=== PATIENT | male | born 1960 | race Caucasian/White ===

== ENCOUNTER 2020-06-19 17:24 | Emergency (ER) | payer MEDICAID ==
[~2020-06-19] VITALS: Ht 180.3 cm; Wt 84.0 kg
[2020-06-19] MEDS ORDERED: METHYLPREDNISOLONE SOD SUCC 125 MG/2 ML VIAL IV STA (18:34)
[2020-06-19] MEDS ORDERED: IPRATROPIUM BROMIDE (0.02%) 0.5MG/2.5ML NEB HHN STA (18:34)
[2020-06-19 18:42] LABS: BASOPHILS % 0.6 % (0.0-2.0); EOSINOPHILS % 2.8 % (0.0-5.0); HEMATOCRIT. 46.3 % (42.0-52.0); HEMOGLOBIN. 15.3 g/dL (14.0-18.0); LYMPHOCYTES % 8.4 % (20.0-50.0); MEAN CORPUSCULAR HEMOGLOBIN 33.8 pg (28.0-32.0); MEAN CORPUSCULAR VOLUME 102.2 fL (80.0-94.0); MEAN PLATELET VOLUME 8.8 fl (7.4-10.4); MONOCYTES % 2.9 % (2.0-8.0); NEUTROPHILS % 85.3 % (40.0-76.0); PLATELET 179 x1000/uL (130-400); RED BLOOD CELL COUNT 4.54 mill/uL (4.7-6.1); RED CELL DISTRIBUTION WIDTH 15.3 % (11.6-14.6)
[2020-06-19] MEDS ORDERED: ASPIRIN 81MG TABLET PO ONE (18:45)
[2020-06-19 18:46] LABS: CHLORIDE 101 mEq/L (98-107)
[2020-06-19] MEDS: ALBUTEROL (0.083%) 2.5MG/3ML NEB HHN SCH ×3 (19:36→20:57)
[2020-06-19] MEDS ORDERED: SODIUM CHLORIDE 0.9% 1,000 ML IV ONE (20:00)
[2020-06-19] MEDS ORDERED: PRED10TA MT (21:27)
[2020-06-19] MEDS ORDERED: ALBU6.7H9 INH (21:43)
[2020-06-19] MEDS ORDERED: ALBUL MT (21:43)
[2020-06-19 22:14] VITALS: BP 124/71
== END 2020-06-19 22:43 | disposition home or self-care (01) ==
LOC: ER 17:24
DX: J45.901 Unspecified asthma with (acute) exacerbation (principal); F17.200 Nicotine dependence, unspecified, uncomplicated; F12.10 Cannabis abuse, uncomplicated; I10 Essential (primary) hypertension
CPT/HCPCS: 36415; 71045; 80053; 83880; 84484; 85025; 85379; 93005; 94640; 96361; 96374; 99285; J2930; Z7610

== ENCOUNTER 2021-03-05 01:08 | Inpatient (IN) | payer MEDICAID, OTHER ==
[2021-03-05] VITALS (10 sets, daily range): BP systolic 118–174; BP diastolic 78–116
[~2021-03-05] VITALS: Ht 185.4 cm; Wt 65.3 kg
[~2021-03-05 01:08] MED LIST: ALBU18HF2 IH; ALBU6.7H9 INH; ALBUL MT; ALFU10TA9 PO; BICT1TAB PO; FINA5TAB11 PO; FLUT1BLS9 IH; FLUT1DIS3 INH; P20 MT; PRED10TA MT; SULF-13 PO; UMEC62.5 IH
[2021-03-05] MEDS ORDERED: METHYLPREDNISOLONE SOD SUCC 125 MG/2 ML VIAL IV STA (01:18)
[2021-03-05] MEDS ORDERED: MAGNESIUM 2 G PREMIX 50 ML IV STA (01:18)
[2021-03-05] MEDS ORDERED: IPRATROPIUM BROMIDE (0.02%) 0.5MG/2.5ML NEB HHN STA (01:18)
[2021-03-05] MEDS ORDERED: ALBUTEROL (0.083%) 2.5MG/3ML NEB HHN STA (01:18)
[2021-03-05 01:57] LABS: HEMATOCRIT 41.6 % (42.0-52.0); HEMOGLOBIN 13.9 g/dL (14.0-18.0); MEAN CORPUSCULAR HEMOGLOBIN 32.5 pg (28.0-32.0); MEAN CORPUSCULAR VOLUME 97.3 fL (80.0-94.0); PLATELET 181 x1000/uL (130-400); RED BLOOD CELL COUNT 4.28 mill/uL (4.7-6.1); RED CELL DISTRIBUTION WIDTH 14.5 % (11.6-14.6)
[2021-03-05 02:14] LABS: CHLORIDE 102 mEq/L (98-107)
[2021-03-05] MEDS ORDERED: ACETAMINOPHEN 325MG TABLET PO PRN (06:45)
[2021-03-05] MEDS ORDERED: ONDANSETRON HCL 4MG/2ML INJ IV PRN (06:45)
[2021-03-05] MEDS: IPRATROPIUM/ALBUTEROL 0.5-3(2.5)MG/3ML NEB HHN SCH ×3 (08:55→21:09)
[2021-03-05] MEDS: FINASTERIDE 5MG TABLET PO SCH (09:00)
[2021-03-05] MEDS: FLUTICASONE PROPIONATE 50MCG/SPRAY BOTTLE BOTHNSTRLS SCH ×2 (09:00→22:42)
[2021-03-05] MEDS: FAMOTIDINE 20MG TABLET PO SCH ×3 (09:00→20:28)
[2021-03-05] MEDS: ENOXAPARIN 40MG/0.4ML SYR SUBCUT SCH (09:00)
[2021-03-05 10:39] LABS: BASOPHILS % 0.1 % (0.0-2.0); HEMATOCRIT. 42.4 % (42.0-52.0); HEMOGLOBIN. 13.5 g/dL (14.0-18.0); LYMPHOCYTES % 8.8 % (20.0-50.0); MEAN CORPUSCULAR HEMOGLOBIN 31.3 pg (28.0-32.0); MEAN CORPUSCULAR VOLUME 98.1 fL (80.0-94.0); MONOCYTES % 1.8 % (2.0-8.0); NEUTROPHILS % 89.3 % (40.0-76.0); PLATELET 164 x1000/uL (130-400); RED BLOOD CELL COUNT 4.32 mill/uL (4.7-6.1); RED CELL DISTRIBUTION WIDTH 15.2 % (11.6-14.6)
[2021-03-05 12:40] LABS: *AMPHETAMINES SCREEN URINE NEGATIVE (NEGATIVE); *BARBITURATES SCREEN URINE NEGATIVE (NEGATIVE); CANNABINOID URINE SCREEN NEGATIVE (NEGATIVE); METHADONE URINE SCREEN NEGATIVE (NEGATIVE); OPIATES URINE SCREEN PRESUMTIVE POSITIVE (NEGATIVE); PHENCYCLIDINE URINE SCREEN NEGATIVE (NEGATIVE)
[2021-03-05 12:41] LABS: *BENZODIAZEPINES SCREEN URINE NEGATIVE (NEGATIVE); *COCAINE SCREEN URINE PRESUMTIVE POSITIVE (NEGATIVE)
[2021-03-05] MEDS: METHYLPREDNISOLONE SOD SUCC 125 MG/2 ML VIAL IV SCH ×2 (12:41→17:14)
[2021-03-05] MEDS: SULFAMETHOXAZOLE/TRIMETHOPRIM 800/160MG TABLET PO SCH (12:41)
[2021-03-05] MEDS: GUAIFENESIN 600MG ER TABLET PO SCH ×2 (12:41→20:25)
[2021-03-06] VITALS (12 sets, daily range): BP systolic 116–172; BP diastolic 67–99
[2021-03-06] MEDS: METHYLPREDNISOLONE SOD SUCC 125 MG/2 ML VIAL IV SCH ×5 (00:46→23:37)
[2021-03-06] MEDS: FLUTICASONE PROPIONATE 50MCG/SPRAY BOTTLE BOTHNSTRLS SCH ×2 (08:38→21:07)
[2021-03-06] MEDS: SULFAMETHOXAZOLE/TRIMETHOPRIM 800/160MG TABLET PO SCH (08:38)
[2021-03-06] MEDS: FAMOTIDINE 20MG TABLET PO SCH ×2 (08:38→21:00)
[2021-03-06] MEDS: FINASTERIDE 5MG TABLET PO SCH (08:38)
[2021-03-06] MEDS: ENOXAPARIN 40MG/0.4ML SYR SUBCUT SCH ×2 (08:39→08:48)
[2021-03-06] MEDS: GUAIFENESIN 600MG ER TABLET PO SCH ×2 (08:44→21:07)
[2021-03-06] MEDS: IPRATROPIUM/ALBUTEROL 0.5-3(2.5)MG/3ML NEB HHN SCH ×4 (09:00→22:32)
[2021-03-06 09:01] LABS: BG CARBOXYHEMOGLOBIN 0.2 % (0.5-1.5); BG DEOXYHEMOGLOBIN 13.1 % (0.0-5.0); BG HCO3 ACT 33.1 mmol/L (22.0-26.0); BG METHEMOGLOBIN 0.2 % (0.0-1.5); BG OXYGEN SATURATION 86.8 % (92.0-98.5); BG OXYHEMOGLOBIN 86.5 % (94.0-97.0); BG PCO2 64.6 mmHg (35.0-45.0); BG PH 7.327 (7.350-7.450); BG PO2 56.7 mmHg (75.0-100.0); BG SAMPLE SITE RIGHT RADIAL; BG TOTAL HEMOGLOBIN 14.2 g/dL (12.0-18.0); BG VENT MODE NASAL CANNULA
[2021-03-06] MEDS: GUAIFENESIN-DM 200MG-20MG/10ML UDC PO PRN ×3 (10:42→23:39)
[2021-03-07] VITALS (12 sets, daily range): BP systolic 117–165; BP diastolic 69–109
[2021-03-07] MEDS: IPRATROPIUM/ALBUTEROL 0.5-3(2.5)MG/3ML NEB HHN SCH ×7 (01:48→22:50)
[2021-03-07] MEDS: METHYLPREDNISOLONE SOD SUCC 125 MG/2 ML VIAL IV SCH ×3 (06:01→17:28)
[2021-03-07 09:08] LABS: ABSOLUTE LYMPHOCYTES 0.9 x10E3/uL (0.7-3.1); ABSOLUTE MONOCYTES 0.4 x10E3/uL (0.1-0.9); BASOPHILS 0 % (Not Estab.); HEMOGLOBIN 13.3 g/dL (13.0-17.7); IMMATURE GRANULOCYTES 0 % (Not Estab.); LYMPHOCYTES 9 % (Not Estab.); MEAN CORPUSCULAR HEMOGLOBIN 31.4 pg (26.6-33.0); MEAN CORPUSCULAR HGB CONC. 33.3 g/dL (31.5-35.7); MEAN CORPUSCULAR VOLUME 95 fL (79-97); MONOCYTES 3 % (Not Estab.); NEUTROPHILS 88 % (Not Estab.); PLATELETS 166 x10E3/uL (150-450); RBC 4.23 x10E6/uL (4.14-5.80); RED CELL DISTRIBUTION WIDTH 13.1 % (11.6-15.4); WBC 10.3 x10E3/uL (3.4-10.8)
[2021-03-07] MEDS: ENOXAPARIN 40MG/0.4ML SYR SUBCUT SCH ×2 (09:20→09:28)
[2021-03-07] MEDS: FLUTICASONE PROPIONATE 50MCG/SPRAY BOTTLE BOTHNSTRLS SCH ×2 (09:21→21:47)
[2021-03-07] MEDS: FINASTERIDE 5MG TABLET PO SCH (09:21)
[2021-03-07] MEDS: SULFAMETHOXAZOLE/TRIMETHOPRIM 800/160MG TABLET PO SCH (09:21)
[2021-03-07] MEDS: GUAIFENESIN 600MG ER TABLET PO SCH ×2 (09:21→21:47)
[2021-03-07] MEDS: FAMOTIDINE 20MG TABLET PO SCH ×2 (09:21→21:47)
[2021-03-07] MEDS: IPRATROPIUM/ALBUTEROL 0.5-3(2.5)MG/3ML NEB HHN PRN (09:34)
[2021-03-07] MEDS: GUAIFENESIN-DM 200MG-20MG/10ML UDC PO PRN (18:27)
[2021-03-08] VITALS (12 sets, daily range): BP systolic 112–171; BP diastolic 66–106
[2021-03-08] MEDS: METHYLPREDNISOLONE SOD SUCC 125 MG/2 ML VIAL IV SCH ×5 (00:23→21:23)
[2021-03-08] MEDS: IPRATROPIUM/ALBUTEROL 0.5-3(2.5)MG/3ML NEB HHN SCH ×5 (02:17→22:25)
[2021-03-08] MEDS: IPRATROPIUM/ALBUTEROL 0.5-3(2.5)MG/3ML NEB HHN PRN (05:00)
[2021-03-08 09:06] LABS: % CD 3 POS. LYMPHOCYTES 81.1 % (57.5-86.2); % CD 4 POS. LYMPHOCYTES 11.5 % (30.8-58.5); % CD 8 POS. LYMPH 67.5 % (12.0-35.5); ABSOLUTE CD 3 730 /uL (622-2402); ABSOLUTE CD 4 HELPER 104 /uL (359-1519); ABSOLUTE CD 8 SUPPRESSOR 608 /uL (109-897); CD4/CD8 RATIO 0.17 (0.92-3.72)
[2021-03-08] MEDS: FINASTERIDE 5MG TABLET PO SCH (09:16)
[2021-03-08] MEDS: GUAIFENESIN 600MG ER TABLET PO SCH ×2 (09:16→21:23)
[2021-03-08] MEDS: FAMOTIDINE 20MG TABLET PO SCH ×2 (09:16→21:23)
[2021-03-08] MEDS: SULFAMETHOXAZOLE/TRIMETHOPRIM 800/160MG TABLET PO SCH (09:16)
[2021-03-08] MEDS ORDERED: P20 MT (10:09)
[2021-03-08] MEDS ORDERED: ALBU18HF2 IH (10:09)
[2021-03-08] MEDS ORDERED: SULF-13 PO (10:09)
[2021-03-08] MEDS: AMLODIPINE 10MG TABLET PO SCH (18:21)
[2021-03-08] MEDS ORDERED: IPRA3AMP9 NEB (19:47)
[2021-03-08] MEDS: METOPROLOL TARTRATE 25MG TABLET PO SCH (21:23)
[2021-03-08] MEDS: GUAIFENESIN-DM 200MG-20MG/10ML UDC PO PRN (21:23)
[2021-03-09] VITALS (13 sets, daily range): BP systolic 118–149; BP diastolic 72–106
[2021-03-09] MEDS: IPRATROPIUM/ALBUTEROL 0.5-3(2.5)MG/3ML NEB HHN SCH ×8 (00:46→22:30)
[2021-03-09] MEDS: GUAIFENESIN-DM 200MG-20MG/10ML UDC PO PRN (03:19)
[2021-03-09] MEDS: METHYLPREDNISOLONE SOD SUCC 125 MG/2 ML VIAL IV SCH (05:10)
[2021-03-09] MEDS: IPRATROPIUM/ALBUTEROL 0.5-3(2.5)MG/3ML NEB HHN PRN (07:58)
[2021-03-09] MEDS: FAMOTIDINE 20MG TABLET PO SCH ×2 (08:46→21:30)
[2021-03-09] MEDS: GUAIFENESIN 600MG ER TABLET PO SCH ×2 (08:46→21:30)
[2021-03-09] MEDS: METOPROLOL TARTRATE 25MG TABLET PO SCH ×2 (08:46→21:30)
[2021-03-09] MEDS: FINASTERIDE 5MG TABLET PO SCH (08:46)
[2021-03-09] MEDS: SULFAMETHOXAZOLE/TRIMETHOPRIM 800/160MG TABLET PO SCH (08:46)
[2021-03-09] MEDS: AMLODIPINE 10MG TABLET PO SCH (08:47)
[2021-03-09] MEDS: ENOXAPARIN 40MG/0.4ML SYR SUBCUT SCH (08:48)
[2021-03-09] MEDS: METHYLPREDNISOLONE SOD SUCC 40 MG/ML VIAL IV SCH ×2 (12:16→21:30)
[2021-03-09] MEDS ORDERED: SIMETHICONE 80MG TABLET CHEW PO PRN (20:30)
[2021-03-09] MEDS: MAGNESIUM/ALUMINUM HYDROXIDE/SIMETHICONE 30ML UDC PO PRN ×2 (21:18→21:30)
[2021-03-10] VITALS (15 sets, daily range): BP systolic 104–138; BP diastolic 58–90
[2021-03-10] MEDS: IPRATROPIUM/ALBUTEROL 0.5-3(2.5)MG/3ML NEB HHN SCH ×5 (02:54→21:05)
[2021-03-10] MEDS: METHYLPREDNISOLONE SOD SUCC 40 MG/ML VIAL IV SCH ×3 (04:00→22:25)
[2021-03-10] MEDS: SULFAMETHOXAZOLE/TRIMETHOPRIM 800/160MG TABLET PO SCH (08:43)
[2021-03-10] MEDS: FAMOTIDINE 20MG TABLET PO SCH ×2 (08:43→22:26)
[2021-03-10] MEDS: ENOXAPARIN 40MG/0.4ML SYR SUBCUT SCH (08:43)
[2021-03-10] MEDS: AMLODIPINE 10MG TABLET PO SCH (08:44)
[2021-03-10] MEDS: METOPROLOL TARTRATE 25MG TABLET PO SCH ×2 (08:44→22:26)
[2021-03-10] MEDS: GUAIFENESIN 600MG ER TABLET PO SCH ×2 (08:44→22:25)
[2021-03-10] MEDS: FINASTERIDE 5MG TABLET PO SCH (08:44)
[2021-03-11] VITALS (10 sets, daily range): BP systolic 116–146; BP diastolic 71–98
[2021-03-11] MEDS: IPRATROPIUM/ALBUTEROL 0.5-3(2.5)MG/3ML NEB HHN SCH ×5 (00:02→15:29)
[2021-03-11] MEDS: METHYLPREDNISOLONE SOD SUCC 40 MG/ML VIAL IV SCH ×2 (05:15→13:12)
[2021-03-11] MEDS: ENOXAPARIN 40MG/0.4ML SYR SUBCUT SCH (09:00)
[2021-03-11] MEDS: FINASTERIDE 5MG TABLET PO SCH (09:28)
[2021-03-11] MEDS: GUAIFENESIN-DM 200MG-20MG/10ML UDC PO PRN (09:29)
[2021-03-11] MEDS: FAMOTIDINE 20MG TABLET PO SCH (09:29)
[2021-03-11] MEDS: AMLODIPINE 10MG TABLET PO SCH (09:29)
[2021-03-11] MEDS: METOPROLOL TARTRATE 25MG TABLET PO SCH (09:29)
[2021-03-11] MEDS: GUAIFENESIN 600MG ER TABLET PO SCH (09:50)
== END 2021-03-11 19:25 | disposition home health service (06) | DRG 816 ==
LOC: ER 01:08 → 3WST 03:31 → EDBEDREQ 03:43 → EDBEDREQTM 03:43 → ENRESERV 04:54
PROVIDERS: ADMIT Internal Medicine; ATTEND Internal Medicine
PROC: 5A09357 Assistance with Respiratory Ventilation, Less than 24 Consecutive Hours, Continuous Positive Airway Pressure (ICD-10-PCS; principal; 2021-03-05)
PROC: 5A09357 Assistance with Respiratory Ventilation, Less than 24 Consecutive Hours, Continuous Positive Airway Pressure (ICD-10-PCS; 2021-03-06)
DX: T40.5X1A Poisoning by cocaine, accidental (unintentional), initial encounter (principal); J96.20 Acute and chronic respiratory failure, unspecified whether with hypoxia or hypercapnia; B20 Human immunodeficiency virus [HIV] disease; J44.1 Chronic obstructive pulmonary disease with (acute) exacerbation; F14.10 Cocaine abuse, uncomplicated; I10 Essential (primary) hypertension; Z20.822 Contact with and (suspected) exposure to COVID-19; J44.0 Chronic obstructive pulmonary disease with (acute) lower respiratory infection; Z82.49 Family history of ischemic heart disease and other diseases of the circulatory system; Z91.19 Patient's noncompliance with other medical treatment and regimen; Z79.899 Other long term (current) drug therapy; Z71.51 Drug abuse counseling and surveillance of drug abuser; Y92.89 Other specified places as the place of occurrence of the external cause
CPT/HCPCS: 36415; 36600; 71045; 80053; 80305; 82375; 82805; 85025; 85027; 86359; 86360; 87426; 93005; 94640; 94660; 99285; J1650; J2920; J2930; J3475

== ENCOUNTER 2021-05-17 17:46 | Inpatient (IN) | payer MEDICAID, OTHER ==
[~2021-05-17] VITALS: Ht 185.4 cm; Wt 55.8 kg
[~2021-05-17 17:46] MED LIST changes: +IPRA3AMP9 NEB
[2021-05-17] MEDS ORDERED: IPRATROPIUM BROMIDE (0.02%) 0.5MG/2.5ML NEB HHN STA (17:53)
[2021-05-17] MEDS ORDERED: METHYLPREDNISOLONE SOD SUCC 125 MG/2 ML VIAL IV STA (17:53)
[2021-05-17] MEDS ORDERED: ALBUTEROL (0.083%) 2.5MG/3ML NEB HHN STA (17:53)
[2021-05-17] MEDS ORDERED: EPINEPHRINE 1:1000 1 MG/ML AMP IM NR (17:58)
[2021-05-17] MEDS ORDERED: AZITHROMYCIN 500MG/250ML 250 ML IV ONE (18:00)
[2021-05-17] MEDS ORDERED: ASPIRIN 81MG TABLET PO ONE (18:00)
[2021-05-17] MEDS ORDERED: CEFTRIAXONE 1 G PREMIX 50 ML IV ONE (18:00)
[2021-05-17] MEDS ORDERED: MAGNESIUM 2 G PREMIX 50 ML IV ONE (18:00)
[2021-05-17 18:11] LABS: BASOPHILS % 0.6 % (0.0-2.0); EOSINOPHILS % 1.8 % (0.0-5.0); HEMATOCRIT. 42.7 % (42.0-52.0); LYMPHOCYTES % 23.1 % (20.0-50.0); MEAN CORPUSCULAR HEMOGLOBIN 31.2 pg (28.0-32.0); MEAN CORPUSCULAR VOLUME 95.4 fL (80.0-94.0); MEAN PLATELET VOLUME 9.3 fl (7.4-10.4); MONOCYTES % 8.3 % (2.0-8.0); NEUTROPHILS % 66.2 % (40.0-76.0); PLATELET 154 x1000/uL (130-400); RED BLOOD CELL COUNT 4.48 mill/uL (4.7-6.1); RED CELL DISTRIBUTION WIDTH 16.2 % (11.6-14.6)
[2021-05-17 18:20] LABS: CHLORIDE 99 mEq/L (98-107)
[2021-05-18 01:30] VITALS: BP 123/64
[2021-05-18] MEDS ORDERED: GUAIFENESIN 200MG/10ML SUGAR FREE UDC PO PRN (04:30)
[2021-05-18] MEDS: GUAIFENESIN/CODEINE 200-20MG/10ML UDC PO PRN ×3 (06:07→23:30)
[2021-05-18 06:19] LABS: BG BASE EXCESS 6.7 mmol/L (-2.0-2.0); BG CARBOXYHEMOGLOBIN 0.3 % (0.5-1.5); BG DEOXYHEMOGLOBIN 1.1 % (0.0-5.0); BG FRACTION INSPIRED OXYGEN 100; BG HCO3 ACT 36.7 mmol/L (22.0-26.0); BG METHEMOGLOBIN 0.3 % (0.0-1.5); BG OXYGEN SATURATION 98.9 % (92.0-98.5); BG OXYHEMOGLOBIN 98.3 % (94.0-97.0); BG PCO2 82.1 mmHg (35.0-45.0); BG PH 7.268 (7.350-7.450); BG PO2 171.1 mmHg (75.0-100.0); BG SAMPLE SITE RIGHT RADIAL; BG TOTAL HEMOGLOBIN 13.7 g/dL (12.0-18.0); BG TOTAL RESPIRATORY RATE 22 b/min; BG VENT MODE MASK - NRB
[2021-05-18 08:00] VITALS: BP 127/86
[2021-05-18] MEDS: DEXAMETHASONE 4MG/ML 1ML VIAL IV SCH (08:31)
[2021-05-18] MEDS: FINASTERIDE 5MG TABLET PO SCH (08:31)
[2021-05-18] MEDS: ALBUTEROL 6.7GM HFA INHALER ORI PRN ×2 (08:55→17:32)
[2021-05-18] MEDS ORDERED: MEDICATION NOT ON FORMULARY EA (Bictegrav/Emtricit/Tenofov Ala (Biktarvy 50-200-25 mg Ta PO SCH (09:00)
[2021-05-18 10:28] LABS: BASOPHILS % 0.2 % (0.0-2.0); HEMATOCRIT. 37.9 % (42.0-52.0); HEMOGLOBIN. 12.5 g/dL (14.0-18.0); LYMPHOCYTES % 9.9 % (20.0-50.0); MEAN CORPUSCULAR VOLUME 94.3 fL (80.0-94.0); MEAN PLATELET VOLUME 8.9 fl (7.4-10.4); MONOCYTES % 4.6 % (2.0-8.0); NEUTROPHILS % 85.3 % (40.0-76.0); PLATELET 123 x1000/uL (130-400); RED BLOOD CELL COUNT 4.02 mill/uL (4.7-6.1); RED CELL DISTRIBUTION WIDTH 16.2 % (11.6-14.6)
[2021-05-18 10:39] LABS: CHLORIDE 100 mEq/L (98-107)
[2021-05-18 12:00] VITALS: BP 113/71
[2021-05-18 16:00] VITALS: BP 130/76
[2021-05-18 16:33] LABS: BG BASE EXCESS 8.1 mmol/L (-2.0-2.0); BG CARBOXYHEMOGLOBIN 0.3 % (0.5-1.5); BG HCO3 ACT 37.4 mmol/L (22.0-26.0); BG METHEMOGLOBIN 0.2 % (0.0-1.5); BG OXYHEMOGLOBIN 95.5 % (94.0-97.0); BG PCO2 76.7 mmHg (35.0-45.0); BG PH 7.306 (7.350-7.450); BG PO2 87.8 mmHg (75.0-100.0); BG SAMPLE SITE RIGHT RADIAL; BG TOTAL HEMOGLOBIN 13.7 g/dL (12.0-18.0); BG VENT MODE MASK - BIPAP
[2021-05-18] MEDS: ENOXAPARIN 40MG/0.4ML SYR SUBCUT SCH ×2 (17:00→17:31)
[2021-05-18] MEDS: DEXT 5%/0.9% NACL 1,000 ML IV SCH (17:30)
[2021-05-18 20:00] VITALS: BP 116/79
[2021-05-18] MEDS ORDERED: ALPRAZOLAM 0.25 MG TABLET PO NR (22:00)
[2021-05-18] MEDS: LEVOFLOXACIN 500MG PREMIX 100 ML IV SCH (22:29)
[2021-05-19] VITALS: BP 147/81
[2021-05-19 04:00] VITALS: BP 113/84
[2021-05-19] MEDS: GUAIFENESIN/CODEINE 200-20MG/10ML UDC PO PRN ×3 (05:40→17:01)
[2021-05-19 07:29] LABS: BASOPHILS % 0.1 % (0.0-2.0); HEMATOCRIT. 38.2 % (42.0-52.0); HEMOGLOBIN. 12.7 g/dL (14.0-18.0); LYMPHOCYTES % 12.7 % (20.0-50.0); MEAN CORPUSCULAR HEMOGLOBIN 31.5 pg (28.0-32.0); MEAN CORPUSCULAR VOLUME 94.2 fL (80.0-94.0); MEAN PLATELET VOLUME 9.3 fl (7.4-10.4); MONOCYTES % 10.4 % (2.0-8.0); NEUTROPHILS % 76.8 % (40.0-76.0); PLATELET 121 x1000/uL (130-400); RED BLOOD CELL COUNT 4.05 mill/uL (4.7-6.1); RED CELL DISTRIBUTION WIDTH 16.1 % (11.6-14.6)
[2021-05-19 07:50] LABS: CHLORIDE 101 mEq/L (98-107)
[2021-05-19 08:00] VITALS: BP 136/98
[2021-05-19] MEDS: DEXAMETHASONE 4MG/ML 1ML VIAL IV SCH (08:49)
[2021-05-19] MEDS: ENOXAPARIN 40MG/0.4ML SYR SUBCUT SCH ×2 (08:49→17:01)
[2021-05-19] MEDS: FINASTERIDE 5MG TABLET PO SCH (08:49)
[2021-05-19] MEDS: DEXT 5%/0.9% NACL 1,000 ML IV SCH (09:05)
[2021-05-19] MEDS ORDERED: LIDOCAINE HCL/PF 1% 2ML VIAL ONE (10:02)
[2021-05-19 11:03] LABS: BG BASE EXCESS 6.7 mmol/L (-2.0-2.0); BG CARBOXYHEMOGLOBIN 0.8 % (0.5-1.5); BG DEOXYHEMOGLOBIN 17.4 % (0.0-5.0); BG FRACTION INSPIRED OXYGEN 35; BG HCO3 ACT 38.4 mmol/L (22.0-26.0); BG METHEMOGLOBIN 0.3 % (0.0-1.5); BG OXYGEN SATURATION 82.4 % (92.0-98.5); BG OXYHEMOGLOBIN 81.5 % (94.0-97.0); BG PCO2 96.4 mmHg (35.0-45.0); BG PH 7.218 (7.350-7.450); BG PO2 54.6 mmHg (75.0-100.0); BG SAMPLE SITE RIGHT RADIAL; BG TOTAL HEMOGLOBIN 14.6 g/dL (12.0-18.0); BG TOTAL RESPIRATORY RATE 31 b/min; BG VENT MODE MASK - BIPAP
[2021-05-19 12:00] VITALS: BP 148/96
[2021-05-19 16:04] VITALS: BP 129/80
[2021-05-19 20:48] VITALS: BP 142/102
[2021-05-19] MEDS: LEVOFLOXACIN 500MG PREMIX 100 ML IV SCH (21:15)
[2021-05-19] MEDS: FUROSEMIDE 40MG/4ML VIAL IVP SCH (21:18)
[2021-05-20] VITALS: BP 116/80
[2021-05-20] MEDS: DEXT 5%/0.9% NACL 1,000 ML IV SCH ×2 (02:15→18:01)
[2021-05-20 04:00] VITALS: BP 98/51
[2021-05-20 07:49] VITALS: BP 141/96
[2021-05-20 07:49] LABS: BASOPHILS % 0.2 % (0.0-2.0); HEMATOCRIT. 39.3 % (42.0-52.0); HEMOGLOBIN. 13.1 g/dL (14.0-18.0); MEAN CORPUSCULAR HEMOGLOBIN 31.7 pg (28.0-32.0); MEAN CORPUSCULAR VOLUME 95.2 fL (80.0-94.0); MEAN PLATELET VOLUME 9.4 fl (7.4-10.4); MONOCYTES % 9.3 % (2.0-8.0); NEUTROPHILS % 72.5 % (40.0-76.0); PLATELET 122 x1000/uL (130-400); RED BLOOD CELL COUNT 4.13 mill/uL (4.7-6.1); RED CELL DISTRIBUTION WIDTH 15.8 % (11.6-14.6)
[2021-05-20] MEDS: DEXAMETHASONE 4MG/ML 1ML VIAL IV SCH (08:00)
[2021-05-20] MEDS: FINASTERIDE 5MG TABLET PO SCH (08:00)
[2021-05-20] MEDS: FUROSEMIDE 40MG/4ML VIAL IVP SCH (08:00)
[2021-05-20] MEDS: ENOXAPARIN 40MG/0.4ML SYR SUBCUT SCH ×2 (08:01→16:31)
[2021-05-20 08:10] LABS: CHLORIDE 96 mEq/L (98-107)
[2021-05-20] MEDS ORDERED: LIDOCAINE HCL/PF 1% 2ML VIAL ONE (09:44)
[2021-05-20 10:12] LABS: BG BASE EXCESS 14.7 mmol/L (-2.0-2.0); BG CARBOXYHEMOGLOBIN 0.5 % (0.5-1.5); BG DEOXYHEMOGLOBIN 4.8 % (0.0-5.0); BG FRACTION INSPIRED OXYGEN 50; BG HCO3 ACT 44.7 mmol/L (22.0-26.0); BG METHEMOGLOBIN 0.3 % (0.0-1.5); BG OXYGEN SATURATION 95.2 % (92.0-98.5); BG OXYHEMOGLOBIN 94.4 % (94.0-97.0); BG PCO2 82.6 mmHg (35.0-45.0); BG PH 7.351 (7.350-7.450); BG PO2 79.5 mmHg (75.0-100.0); BG SAMPLE SITE RIGHT RADIAL; BG TOTAL HEMOGLOBIN 14.7 g/dL (12.0-18.0); BG VENT MODE MASK - BIPAP
[2021-05-20 11:33] VITALS: BP 145/98
[2021-05-20 15:56] VITALS: BP 136/91
[2021-05-20 20:00] VITALS: BP 152/94
[2021-05-20] MEDS: LEVOFLOXACIN 500MG PREMIX 100 ML IV SCH (20:58)
[2021-05-21 00:17] VITALS: BP 143/89
[2021-05-21 04:00] VITALS: BP 157/107
[2021-05-21] MEDS ORDERED: LIDOCAINE HCL/PF 1% 2ML VIAL ONE ×2 (05:00→16:30)
[2021-05-21 07:49] VITALS: BP 109/91
[2021-05-21] MEDS: FINASTERIDE 5MG TABLET PO SCH (08:25)
[2021-05-21] MEDS: FUROSEMIDE 40MG/4ML VIAL IVP SCH (08:25)
[2021-05-21] MEDS: DEXAMETHASONE 4MG/ML 1ML VIAL IV SCH (08:25)
[2021-05-21] MEDS: ENOXAPARIN 40MG/0.4ML SYR SUBCUT SCH ×2 (08:26→17:00)
[2021-05-21 10:40] LABS: BASOPHILS % 0.1 % (0.0-2.0); EOSINOPHILS % 0.1 % (0.0-5.0); HEMATOCRIT. 42.6 % (42.0-52.0); LYMPHOCYTES % 21.6 % (20.0-50.0); MEAN CORPUSCULAR HEMOGLOBIN 31.1 pg (28.0-32.0); MEAN CORPUSCULAR VOLUME 94.6 fL (80.0-94.0); MEAN PLATELET VOLUME 10.5 fl (7.4-10.4); MONOCYTES % 12.5 % (2.0-8.0); NEUTROPHILS % 65.7 % (40.0-76.0); PLATELET 136 x1000/uL (130-400); RED CELL DISTRIBUTION WIDTH 15.6 % (11.6-14.6)
[2021-05-21 11:11] LABS: CHLORIDE 95 mEq/L (98-107)
[2021-05-21] MEDS: DEXT 5%/0.9% NACL 1,000 ML IV SCH (11:51)
[2021-05-21 12:05] VITALS: BP 158/94
[2021-05-21 12:54] LABS: BG BASE EXCESS 9.9 mmol/L (-2.0-2.0); BG CARBOXYHEMOGLOBIN 0.3 % (0.5-1.5); BG DEOXYHEMOGLOBIN 0.5 % (0.0-5.0); BG FRACTION INSPIRED OXYGEN 100; BG HCO3 ACT 40.9 mmol/L (22.0-26.0); BG METHEMOGLOBIN 0.3 % (0.0-1.5); BG OXYGEN SATURATION 99.5 % (92.0-98.5); BG OXYHEMOGLOBIN 98.9 % (94.0-97.0); BG PCO2 91.3 mmHg (35.0-45.0); BG PH 7.269 (7.350-7.450); BG PO2 257.9 mmHg (75.0-100.0); BG SAMPLE SITE LEFT RADIAL; BG TOTAL HEMOGLOBIN 14.5 g/dL (12.0-18.0); BG TOTAL RESPIRATORY RATE 39 b/min; BG VENT MODE MASK - BIPAP
[2021-05-21 15:40] VITALS: BP 148/87
[2021-05-21] MEDS: SULFAMETHOXAZOLE/TRIMETHOPRIM 800/160MG TABLET PO SCH ×2 (17:10→22:49)
[2021-05-21 18:16] LABS: BG BASE EXCESS 14.3 mmol/L (-2.0-2.0); BG CARBOXYHEMOGLOBIN 0.3 % (0.5-1.5); BG DEOXYHEMOGLOBIN 5.8 % (0.0-5.0); BG FRACTION INSPIRED OXYGEN 40; BG HCO3 ACT 43.6 mmol/L (22.0-26.0); BG METHEMOGLOBIN 0.3 % (0.0-1.5); BG OXYGEN SATURATION 94.2 % (92.0-98.5); BG OXYHEMOGLOBIN 93.6 % (94.0-97.0); BG PCO2 78.3 mmHg (35.0-45.0); BG PH 7.364 (7.350-7.450); BG PO2 75.8 mmHg (75.0-100.0); BG SAMPLE SITE LEFT RADIAL; BG VENT MODE MASK - BIPAP
[2021-05-21 20:00] VITALS: BP 169/100
[2021-05-21] MEDS: LEVOFLOXACIN 500MG PREMIX 100 ML IV SCH (20:55)
[2021-05-21] MEDS ORDERED: ALBUTEROL 2MG TABLET PO SCH (21:30)
[2021-05-22] MEDS: DEXT 5%/0.9% NACL 1,000 ML IV SCH (02:50)
[2021-05-22] MEDS: SULFAMETHOXAZOLE/TRIMETHOPRIM 800/160MG TABLET PO SCH ×3 (05:33→21:31)
[2021-05-22 06:00] VITALS: BP 135/81
[2021-05-22] MEDS: DEXAMETHASONE 4MG/ML 1ML VIAL IV SCH (09:00)
[2021-05-22] MEDS: ENOXAPARIN 40MG/0.4ML SYR SUBCUT SCH ×2 (09:00→17:00)
[2021-05-22] MEDS: FINASTERIDE 5MG TABLET PO SCH (09:00)
[2021-05-22] MEDS: GUAIFENESIN/CODEINE 200-20MG/10ML UDC PO PRN (11:31)
[2021-05-22 12:15] LABS: BG BASE EXCESS 16.2 mmol/L (-2.0-2.0); BG CARBOXYHEMOGLOBIN 0.5 % (0.5-1.5); BG DEOXYHEMOGLOBIN 1.6 % (0.0-5.0); BG FRACTION INSPIRED OXYGEN 80; BG HCO3 ACT 48.1 mmol/L (22.0-26.0); BG METHEMOGLOBIN 0.4 % (0.0-1.5); BG OXYGEN SATURATION 98.4 % (92.0-98.5); BG OXYHEMOGLOBIN 97.5 % (94.0-97.0); BG PH 7.279 (7.350-7.450); BG SAMPLE SITE RIGHT RADIAL; BG TOTAL HEMOGLOBIN 13.7 g/dL (12.0-18.0); BG VENT MODE MASK - BIPAP
[2021-05-22 20:00] VITALS: BP 131/70
[2021-05-22] MEDS: LEVOFLOXACIN 500MG PREMIX 100 ML IV SCH (20:48)
[2021-05-23] VITALS: BP 125/83
[2021-05-23 04:00] VITALS: BP 128/77
[2021-05-23] MEDS: DEXT 5%/0.9% NACL 1,000 ML IV SCH ×2 (04:50→13:40)
[2021-05-23] MEDS: SULFAMETHOXAZOLE/TRIMETHOPRIM 800/160MG TABLET PO SCH ×3 (05:20→21:11)
[2021-05-23 08:00] VITALS: BP 154/88
[2021-05-23] MEDS: ENOXAPARIN 40MG/0.4ML SYR SUBCUT SCH ×2 (08:32→17:33)
[2021-05-23] MEDS: DEXAMETHASONE 4MG/ML 1ML VIAL IV SCH (08:32)
[2021-05-23] MEDS: FINASTERIDE 5MG TABLET PO SCH (08:33)
[2021-05-23 12:00] VITALS: BP 129/80
[2021-05-23 16:00] VITALS: BP 149/91
[2021-05-23 20:11] VITALS: BP 141/78
[2021-05-23] MEDS: LEVOFLOXACIN 500MG PREMIX 100 ML IV SCH (21:11)
[2021-05-24] VITALS (7 sets, daily range): BP systolic 95–156; BP diastolic 51–104
[2021-05-24] MEDS: SULFAMETHOXAZOLE/TRIMETHOPRIM 800/160MG TABLET PO SCH ×3 (06:38→21:05)
[2021-05-24] MEDS: DEXT 5%/0.9% NACL 1,000 ML IV SCH ×2 (06:38→21:05)
[2021-05-24] MEDS: ENOXAPARIN 40MG/0.4ML SYR SUBCUT SCH ×2 (09:03→18:48)
[2021-05-24] MEDS: DEXAMETHASONE 4MG/ML 1ML VIAL IV SCH (09:03)
[2021-05-24] MEDS: FINASTERIDE 5MG TABLET PO SCH (09:03)
[2021-05-25] VITALS: BP 128/88
[2021-05-25 04:00] VITALS: BP 132/90
[2021-05-25] MEDS: SULFAMETHOXAZOLE/TRIMETHOPRIM 800/160MG TABLET PO SCH ×3 (06:00→20:43)
[2021-05-25 08:00] VITALS: BP 130/79
[2021-05-25] MEDS: ENOXAPARIN 40MG/0.4ML SYR SUBCUT SCH ×2 (08:16→17:01)
[2021-05-25] MEDS: DEXAMETHASONE 4MG/ML 1ML VIAL IV SCH (08:16)
[2021-05-25] MEDS: FINASTERIDE 5MG TABLET PO SCH (08:16)
[2021-05-25 10:20] LABS: BASOPHILS % 0.1 % (0.0-2.0); CHLORIDE 95 mEq/L (98-107); HEMATOCRIT. 39.3 % (42.0-52.0); HEMOGLOBIN. 12.9 g/dL (14.0-18.0); LYMPHOCYTES % 16.7 % (20.0-50.0); MEAN CORPUSCULAR HEMOGLOBIN 31.6 pg (28.0-32.0); MEAN CORPUSCULAR VOLUME 96.3 fL (80.0-94.0); MEAN PLATELET VOLUME 9.1 fl (7.4-10.4); MONOCYTES % 13.7 % (2.0-8.0); NEUTROPHILS % 69.5 % (40.0-76.0); PLATELET 115 x1000/uL (130-400); RED BLOOD CELL COUNT 4.08 mill/uL (4.7-6.1); RED CELL DISTRIBUTION WIDTH 14.9 % (11.6-14.6)
[2021-05-25 12:00] VITALS: BP 119/70
[2021-05-25 16:00] VITALS: BP 139/85
[2021-05-25] MEDS: DEXT 5%/0.9% NACL 1,000 ML IV SCH (17:01)
[2021-05-25 20:00] VITALS: BP 154/93
[2021-05-26 00:04] VITALS: BP 147/95
[2021-05-26 04:10] VITALS: BP 153/94
[2021-05-26] MEDS: DEXT 5%/0.9% NACL 1,000 ML IV SCH (06:58)
[2021-05-26] MEDS: SULFAMETHOXAZOLE/TRIMETHOPRIM 800/160MG TABLET PO SCH ×3 (06:58→21:55)
[2021-05-26 08:00] VITALS: BP 142/89
[2021-05-26] MEDS: DEXAMETHASONE 4MG/ML 1ML VIAL IV SCH (08:54)
[2021-05-26] MEDS: FINASTERIDE 5MG TABLET PO SCH (08:54)
[2021-05-26] MEDS: ENOXAPARIN 40MG/0.4ML SYR SUBCUT SCH ×3 (08:55→17:00)
[2021-05-26 12:00] VITALS: BP 121/91
[2021-05-26] MEDS: MORPHINE SULFATE 2 MG/ML CPJ (NOT FOR IM USE) IV SCH ×3 (13:00→21:00)
[2021-05-26] MEDS ORDERED: HALOPERIDOL LACTATE 5MG/ML VIAL IM NR (13:45)
[2021-05-26 16:00] VITALS: BP 158/84
[2021-05-26 20:24] VITALS: BP 147/59
[2021-05-27] MEDS: DEXT 5%/0.9% NACL 1,000 ML IV SCH ×2 (00:45→17:25)
[2021-05-27] MEDS: MORPHINE SULFATE 2 MG/ML CPJ (NOT FOR IM USE) IV SCH ×6 (01:00→21:00)
[2021-05-27 04:01] VITALS: BP 158/77
[2021-05-27] MEDS: SULFAMETHOXAZOLE/TRIMETHOPRIM 800/160MG TABLET PO SCH ×3 (05:57→21:17)
[2021-05-27] MEDS: FINASTERIDE 5MG TABLET PO SCH ×2 (08:43→08:46)
[2021-05-27] MEDS: ENOXAPARIN 40MG/0.4ML SYR SUBCUT SCH ×3 (08:43→17:00)
[2021-05-27] MEDS: DEXAMETHASONE 4MG/ML 1ML VIAL IV SCH (08:46)
[2021-05-27 12:00] VITALS: BP 143/114
[2021-05-27 16:00] VITALS: BP 119/75
[2021-05-28 07:52] VITALS: BP 168/108
[2021-05-28] MEDS: DEXAMETHASONE 4MG/ML 1ML VIAL IV SCH (08:56)
[2021-05-28] MEDS: FINASTERIDE 5MG TABLET PO SCH (08:56)
[2021-05-28] MEDS: ENOXAPARIN 40MG/0.4ML SYR SUBCUT SCH ×2 (08:57→17:00)
[2021-05-28] MEDS: MORPHINE SULFATE 2 MG/ML CPJ (NOT FOR IM USE) IV SCH ×4 (09:00→20:54)
[2021-05-28] MEDS: DEXT 5%/0.9% NACL 1,000 ML IV SCH (09:08)
[2021-05-28 10:19] LABS: BASOPHILS % 0.1 % (0.0-2.0); EOSINOPHILS % 0.4 % (0.0-5.0); HEMATOCRIT. 40.8 % (42.0-52.0); HEMOGLOBIN. 13.5 g/dL (14.0-18.0); LYMPHOCYTES % 11.7 % (20.0-50.0); MEAN CORPUSCULAR VOLUME 93.4 fL (80.0-94.0); MEAN PLATELET VOLUME 9.5 fl (7.4-10.4); MONOCYTES % 12.1 % (2.0-8.0); NEUTROPHILS % 75.7 % (40.0-76.0); PLATELET 121 x1000/uL (130-400); RED BLOOD CELL COUNT 4.36 mill/uL (4.7-6.1); RED CELL DISTRIBUTION WIDTH 14.3 % (11.6-14.6)
[2021-05-28 10:41] LABS: CHLORIDE 90 mEq/L (98-107)
[2021-05-28] MEDS: SULFAMETHOXAZOLE/TRIMETHOPRIM 800/160MG TABLET PO SCH ×2 (13:52→20:40)
[2021-05-28 19:58] VITALS: BP 104/70
[2021-05-29] MEDS: MORPHINE SULFATE 2 MG/ML CPJ (NOT FOR IM USE) IV SCH ×6 (01:00→21:00)
[2021-05-29] MEDS: DEXT 5%/0.9% NACL 1,000 ML IV SCH ×2 (02:45→19:25)
[2021-05-29] MEDS: SULFAMETHOXAZOLE/TRIMETHOPRIM 800/160MG TABLET PO SCH ×3 (05:15→19:50)
[2021-05-29 08:00] VITALS: BP 154/94
[2021-05-29] MEDS: FINASTERIDE 5MG TABLET PO SCH (09:00)
[2021-05-29] MEDS: ENOXAPARIN 40MG/0.4ML SYR SUBCUT SCH ×2 (09:00→17:00)
[2021-05-29] MEDS: DEXAMETHASONE 4MG/ML 1ML VIAL IV SCH (09:13)
[2021-05-29 12:00] VITALS: BP 158/78
[2021-05-29 16:00] VITALS: BP 143/85
[2021-05-29 20:00] VITALS: BP 122/80
[2021-05-30] MEDS: MORPHINE SULFATE 2 MG/ML CPJ (NOT FOR IM USE) IV SCH ×6 (01:00→21:00)
[2021-05-30] MEDS: SULFAMETHOXAZOLE/TRIMETHOPRIM 800/160MG TABLET PO SCH ×3 (05:31→21:46)
[2021-05-30 08:00] VITALS: BP 108/61
[2021-05-30] MEDS: ENOXAPARIN 40MG/0.4ML SYR SUBCUT SCH ×2 (09:00→17:00)
[2021-05-30] MEDS: DEXAMETHASONE 4MG/ML 1ML VIAL IV SCH (09:16)
[2021-05-30] MEDS: FINASTERIDE 5MG TABLET PO SCH (09:16)
[2021-05-30 12:00] VITALS: BP 134/82
[2021-05-30] MEDS: DEXT 5%/0.9% NACL 1,000 ML IV SCH (12:05)
[2021-05-30 16:00] VITALS: BP 112/73
[2021-05-30] MEDS: GUAIFENESIN/CODEINE 200-20MG/10ML UDC PO PRN (18:17)
[2021-05-30 20:15] VITALS: BP 106/70
[2021-05-31] VITALS (7 sets, daily range): BP systolic 100–140; BP diastolic 57–90
[2021-05-31] MEDS: MORPHINE SULFATE 2 MG/ML CPJ (NOT FOR IM USE) IV SCH ×4 (00:38→12:10)
[2021-05-31] MEDS: DEXT 5%/0.9% NACL 1,000 ML IV SCH (04:45)
[2021-05-31] MEDS: SULFAMETHOXAZOLE/TRIMETHOPRIM 800/160MG TABLET PO SCH ×3 (06:11→21:36)
[2021-05-31] MEDS: FINASTERIDE 5MG TABLET PO SCH (08:22)
[2021-05-31] MEDS: ENOXAPARIN 40MG/0.4ML SYR SUBCUT SCH ×2 (08:22→16:12)
[2021-05-31] MEDS: DEXAMETHASONE 4MG/ML 1ML VIAL IV SCH (08:22)
[2021-05-31 12:17] LABS: BG BASE EXCESS 22.4 mmol/L (-2.0-2.0); BG CARBOXYHEMOGLOBIN 0.3 % (0.5-1.5); BG DEOXYHEMOGLOBIN 1.8 % (0.0-5.0); BG FRACTION INSPIRED OXYGEN 100; BG HCO3 ACT 53.7 mmol/L (22.0-26.0); BG METHEMOGLOBIN 0.3 % (0.0-1.5); BG OXYGEN SATURATION 98.2 % (92.0-98.5); BG OXYHEMOGLOBIN 97.6 % (94.0-97.0); BG PCO2 106.2 mmHg (35.0-45.0); BG PH 7.322 (7.350-7.450); BG PO2 117.3 mmHg (75.0-100.0); BG SAMPLE SITE RIGHT RADIAL; BG TOTAL HEMOGLOBIN 12.2 g/dL (12.0-18.0); BG VENT MODE MASK - NRB
[2021-05-31] MEDS: ALBUTEROL 6.7GM HFA INHALER ORI SCH (16:16)
[2021-05-31 20:28] LABS: HEMATOCRIT 34.4 % (42.0-52.0); HEMOGLOBIN 11.5 g/dL (14.0-18.0); MEAN CORPUSCULAR HEMOGLOBIN 31.3 pg (28.0-32.0); MEAN CORPUSCULAR VOLUME 93.9 fL (80.0-94.0); PLATELET 152 x1000/uL (130-400); RED BLOOD CELL COUNT 3.67 mill/uL (4.7-6.1); RED CELL DISTRIBUTION WIDTH 14.2 % (11.6-14.6)
[2021-05-31 20:34] LABS: CHLORIDE 86 mEq/L (98-107)
[2021-05-31] MEDS: METHYLPREDNISOLONE SOD SUCC 40 MG/ML VIAL IV SCH (21:36)
[2021-05-31 22:47] LABS: BG CARBOXYHEMOGLOBIN 0.3 % (0.5-1.5); BG DEOXYHEMOGLOBIN 3.7 % (0.0-5.0); BG FRACTION INSPIRED OXYGEN 44; BG HCO3 ACT 44.9 mmol/L (22.0-26.0); BG METHEMOGLOBIN 0.3 % (0.0-1.5); BG OXYGEN SATURATION 96.3 % (92.0-98.5); BG OXYHEMOGLOBIN 95.7 % (94.0-97.0); BG PCO2 80.5 mmHg (35.0-45.0); BG PH 7.364 (7.350-7.450); BG PO2 86.8 mmHg (75.0-100.0); BG SAMPLE SITE RIGHT RADIAL; BG VENT MODE MASK - SIMPLE
[2021-06-01] MEDS ORDERED: SODIUM POLYSTYRENE SULFONATE 15 G/60 ML BOT PO NR (01:00)
[2021-06-01 04:00] VITALS: BP 145/93
[2021-06-01] MEDS: SULFAMETHOXAZOLE/TRIMETHOPRIM 800/160MG TABLET PO SCH ×3 (05:51→20:17)
[2021-06-01 06:32] LABS: CHLORIDE 89 mEq/L (98-107)
[2021-06-01 06:56] LABS: HEMATOCRIT. 37.1 % (42.0-52.0); HEMOGLOBIN. 12.5 g/dL (14.0-18.0); MEAN CORPUSCULAR HEMOGLOBIN 31.6 pg (28.0-32.0); PLATELET 164 x1000/uL (130-400); RED BLOOD CELL COUNT 3.95 mill/uL (4.7-6.1); RED CELL DISTRIBUTION WIDTH 14.1 % (11.6-14.6)
[2021-06-01 08:00] VITALS: BP 130/81
[2021-06-01] MEDS: METHYLPREDNISOLONE SOD SUCC 40 MG/ML VIAL IV SCH ×2 (08:08→20:17)
[2021-06-01] MEDS: FINASTERIDE 5MG TABLET PO SCH (08:08)
[2021-06-01] MEDS: ENOXAPARIN 40MG/0.4ML SYR SUBCUT SCH ×3 (08:09→16:51)
[2021-06-01] MEDS: ALBUTEROL 6.7GM HFA INHALER ORI SCH ×4 (08:10→20:04)
[2021-06-01 12:00] VITALS: BP 155/97
[2021-06-01] MEDS ORDERED: SODIUM POLYSTYRENE SULFONATE 15 G/60 ML BOT PO SCH (14:00)
[2021-06-01 20:00] VITALS: BP 180/109
[2021-06-01] MEDS: ALPRAZOLAM 0.25 MG TABLET PO PRN (20:17)
[2021-06-01] MEDS: CLONIDINE 0.1MG TABLET PO PRN (20:17)
[2021-06-01 20:56] LABS: PLATELET ESTIMATE NORMAL
[2021-06-02] VITALS: BP 159/96
[2021-06-02] MEDS: ALBUTEROL 6.7GM HFA INHALER ORI SCH ×7 (00:16→23:58)
[2021-06-02 04:00] VITALS: BP 166/97
[2021-06-02] MEDS: SULFAMETHOXAZOLE/TRIMETHOPRIM 800/160MG TABLET PO SCH ×3 (06:14→21:32)
[2021-06-02] MEDS: CLONIDINE 0.1MG TABLET PO PRN ×2 (06:14→13:57)
[2021-06-02 07:46] LABS: HEMATOCRIT. 36.6 % (42.0-52.0); HEMOGLOBIN. 12.2 g/dL (14.0-18.0); MEAN CORPUSCULAR HEMOGLOBIN 31.7 pg (28.0-32.0); MEAN CORPUSCULAR VOLUME 94.6 fL (80.0-94.0); MEAN PLATELET VOLUME 8.8 fl (7.4-10.4); PLATELET 173 x1000/uL (130-400); RED BLOOD CELL COUNT 3.87 mill/uL (4.7-6.1); RED CELL DISTRIBUTION WIDTH 14.3 % (11.6-14.6)
[2021-06-02 08:00] VITALS: BP 157/107
[2021-06-02 08:05] LABS: CHLORIDE 92 mEq/L (98-107)
[2021-06-02] MEDS: FINASTERIDE 5MG TABLET PO SCH (08:43)
[2021-06-02] MEDS: ENOXAPARIN 40MG/0.4ML SYR SUBCUT SCH ×3 (08:43→17:00)
[2021-06-02] MEDS: METHYLPREDNISOLONE SOD SUCC 40 MG/ML VIAL IV SCH ×2 (09:19→21:32)
[2021-06-02 12:00] VITALS: BP 162/117
[2021-06-02 16:00] VITALS: BP 134/97
[2021-06-02 16:21] LABS: PLATELET ESTIMATE NORMAL
[2021-06-02 20:00] VITALS: BP 150/73
[2021-06-02] MEDS: ALPRAZOLAM 0.25 MG TABLET PO PRN (21:32)
[2021-06-03] VITALS (7 sets, daily range): BP systolic 127–163; BP diastolic 80–105
[2021-06-03] MEDS: ALBUTEROL 6.7GM HFA INHALER ORI SCH ×5 (04:00→20:35)
[2021-06-03] MEDS: SULFAMETHOXAZOLE/TRIMETHOPRIM 800/160MG TABLET PO SCH ×3 (06:24→20:34)
[2021-06-03] MEDS: FINASTERIDE 5MG TABLET PO SCH (08:48)
[2021-06-03] MEDS: ALPRAZOLAM 0.25 MG TABLET PO PRN (08:48)
[2021-06-03] MEDS: METHYLPREDNISOLONE SOD SUCC 40 MG/ML VIAL IV SCH ×2 (08:48→20:34)
[2021-06-03] MEDS: ENOXAPARIN 40MG/0.4ML SYR SUBCUT SCH ×3 (08:49→16:56)
[2021-06-03] MEDS: GUAIFENESIN-DM 200MG-20MG/10ML UDC PO PRN ×2 (09:56→16:56)
[2021-06-03] MEDS: GUAIFENESIN/DM 600MG/30MG ER TAB 12HR PO SCH (20:34)
[2021-06-04] MEDS: ALBUTEROL 6.7GM HFA INHALER ORI SCH ×6 (00:53→20:43)
[2021-06-04 04:00] VITALS: BP 162/97
[2021-06-04] MEDS: SULFAMETHOXAZOLE/TRIMETHOPRIM 800/160MG TABLET PO SCH ×3 (05:32→22:00)
[2021-06-04 08:00] VITALS: BP 165/85
[2021-06-04] MEDS: ENOXAPARIN 40MG/0.4ML SYR SUBCUT SCH ×3 (09:00→17:00)
[2021-06-04] MEDS: METHYLPREDNISOLONE SOD SUCC 40 MG/ML VIAL IV SCH ×2 (09:50→20:41)
[2021-06-04] MEDS: FINASTERIDE 5MG TABLET PO SCH (09:50)
[2021-06-04] MEDS: GUAIFENESIN/DM 600MG/30MG ER TAB 12HR PO SCH ×2 (09:50→20:41)
[2021-06-04 12:00] VITALS: BP 152/94
[2021-06-04 16:00] VITALS: BP 132/94
[2021-06-04 20:00] VITALS: BP 165/97
[2021-06-05 00:27] VITALS: BP 137/81
[2021-06-05 04:00] VITALS: BP 143/97
[2021-06-05] MEDS: ALBUTEROL 6.7GM HFA INHALER ORI SCH ×6 (04:00→20:59)
[2021-06-05] MEDS: SULFAMETHOXAZOLE/TRIMETHOPRIM 800/160MG TABLET PO SCH ×3 (05:40→21:00)
[2021-06-05 08:00] VITALS: BP 145/83
[2021-06-05] MEDS: ENOXAPARIN 40MG/0.4ML SYR SUBCUT SCH ×2 (09:00→16:28)
[2021-06-05] MEDS: FINASTERIDE 5MG TABLET PO SCH (09:14)
[2021-06-05] MEDS: GUAIFENESIN/DM 600MG/30MG ER TAB 12HR PO SCH ×2 (09:14→21:00)
[2021-06-05] MEDS: METHYLPREDNISOLONE SOD SUCC 40 MG/ML VIAL IV SCH ×2 (09:14→21:00)
[2021-06-05 11:54] VITALS: BP 148/88
[2021-06-05 16:00] VITALS: BP 162/80
[2021-06-05 20:00] VITALS: BP 145/90
[2021-06-05] MEDS: ALPRAZOLAM 0.25 MG TABLET PO PRN (21:00)
[2021-06-06] MEDS: ALBUTEROL 6.7GM HFA INHALER ORI SCH ×6 (00:22→21:50)
[2021-06-06 04:00] VITALS: BP 125/91
[2021-06-06] MEDS: SULFAMETHOXAZOLE/TRIMETHOPRIM 800/160MG TABLET PO SCH ×3 (06:19→21:47)
[2021-06-06 08:00] VITALS: BP 93/66
[2021-06-06] MEDS: GUAIFENESIN/DM 600MG/30MG ER TAB 12HR PO SCH ×2 (08:47→21:47)
[2021-06-06] MEDS: FINASTERIDE 5MG TABLET PO SCH ×2 (08:47→08:57)
[2021-06-06] MEDS: METHYLPREDNISOLONE SOD SUCC 40 MG/ML VIAL IV SCH ×2 (08:47→21:47)
[2021-06-06] MEDS: ENOXAPARIN 40MG/0.4ML SYR SUBCUT SCH ×3 (08:48→16:26)
[2021-06-06] MEDS ORDERED: IOHEXOL-350 100 ML BOTTLE ONE ×2 (09:13→21:54)
[2021-06-06 11:58] VITALS: BP 134/88
[2021-06-06] MEDS: ALPRAZOLAM 0.25 MG TABLET PO PRN (14:53)
[2021-06-06 16:26] VITALS: BP 110/77
[2021-06-06 20:00] VITALS: BP 140/71
[2021-06-06] MEDS: CLONIDINE 0.1MG TABLET PO PRN (23:44)
[2021-06-07] VITALS (7 sets, daily range): BP systolic 135–171; BP diastolic 82–107
[2021-06-07] MEDS: ALBUTEROL 6.7GM HFA INHALER ORI SCH ×6 (04:00→20:00)
[2021-06-07] MEDS: SULFAMETHOXAZOLE/TRIMETHOPRIM 800/160MG TABLET PO SCH ×3 (05:25→21:55)
[2021-06-07] MEDS: METHYLPREDNISOLONE SOD SUCC 40 MG/ML VIAL IV SCH ×2 (08:55→21:55)
[2021-06-07] MEDS: ENOXAPARIN 40MG/0.4ML SYR SUBCUT SCH ×2 (08:55→16:37)
[2021-06-07] MEDS: FINASTERIDE 5MG TABLET PO SCH (08:55)
[2021-06-07] MEDS: GUAIFENESIN/DM 600MG/30MG ER TAB 12HR PO SCH ×2 (10:07→21:55)
[2021-06-07] MEDS: CLONIDINE 0.1MG TABLET PO PRN ×2 (12:36→21:55)
[2021-06-07] MEDS: ALPRAZOLAM 0.25 MG TABLET PO PRN (14:51)
[2021-06-07] MEDS ORDERED: NALOXONE HCL 0.4MG/ML VIAL IV PRN (15:15)
[2021-06-07] MEDS: HYDROCODONE/ACETAMINOPHEN 5/325MG TABLET PO PRN (17:01)
[2021-06-08] VITALS (7 sets, daily range): BP systolic 123–182; BP diastolic 75–107
[2021-06-08] MEDS: ALBUTEROL 6.7GM HFA INHALER ORI SCH ×3 (03:31→08:01)
[2021-06-08] MEDS: THEOPHYLLINE ANHYDROUS 80 MG/15 ML 120ML PO SCH ×3 (05:38→21:49)
[2021-06-08] MEDS: SULFAMETHOXAZOLE/TRIMETHOPRIM 800/160MG TABLET PO SCH ×3 (05:38→21:49)
[2021-06-08] MEDS: FINASTERIDE 5MG TABLET PO SCH (08:01)
[2021-06-08] MEDS: METHYLPREDNISOLONE SOD SUCC 40 MG/ML VIAL IV SCH ×2 (08:01→21:50)
[2021-06-08] MEDS: GUAIFENESIN/DM 600MG/30MG ER TAB 12HR PO SCH ×2 (08:01→21:49)
[2021-06-08] MEDS: ENOXAPARIN 40MG/0.4ML SYR SUBCUT SCH ×2 (08:02→17:00)
[2021-06-08] MEDS: HYDROCODONE/ACETAMINOPHEN 5/325MG TABLET PO PRN ×2 (08:35→22:07)
[2021-06-08] MEDS ORDERED: MORPHINE SULFATE 2 MG/ML CPJ (NOT FOR IM USE) IV NR (11:00)
[2021-06-08 11:54] LABS: BG BASE EXCESS 29.3 mmol/L (-2.0-2.0); BG CARBOXYHEMOGLOBIN 0.8 % (0.5-1.5); BG DEOXYHEMOGLOBIN 7.1 % (0.0-5.0); BG HCO3 ACT 64.2 mmol/L (22.0-26.0); BG METHEMOGLOBIN 0.3 % (0.0-1.5); BG OXYGEN SATURATION 92.8 % (92.0-98.5); BG OXYHEMOGLOBIN 91.8 % (94.0-97.0); BG PCO2 134.8 mmHg (35.0-45.0); BG PH 7.296 (7.350-7.450); BG PO2 67.2 mmHg (75.0-100.0); BG SAMPLE SITE LEFT BRACHIAL; BG TOTAL HEMOGLOBIN 14.1 g/dL (12.0-18.0); BG VENT MODE MASK - SIMPLE
[2021-06-08] MEDS: ASPIRIN 81MG TABLET PO SCH (14:27)
[2021-06-08] MEDS: ALBUTEROL (0.083%) 2.5MG/3ML NEB INH SCH (15:40)
[2021-06-08 17:14] LABS: HEMATOCRIT. 37.7 % (42.0-52.0); HEMOGLOBIN. 12.7 g/dL (14.0-18.0); MEAN CORPUSCULAR VOLUME 94.8 fL (80.0-94.0); MEAN PLATELET VOLUME 8.8 fl (7.4-10.4); PLATELET 257 x1000/uL (130-400); RED BLOOD CELL COUNT 3.97 mill/uL (4.7-6.1); RED CELL DISTRIBUTION WIDTH 14.2 % (11.6-14.6)
[2021-06-08 17:23] LABS: CHLORIDE 87 mEq/L (98-107)
[2021-06-08 17:55] LABS: PLATELET ESTIMATE NORMAL
[2021-06-08] MEDS: ALPRAZOLAM 0.25 MG TABLET PO PRN (22:07)
[2021-06-09] VITALS (13 sets, daily range): BP systolic 113–171; BP diastolic 72–111
[2021-06-09] MEDS: CLONIDINE 0.1MG TABLET PO PRN (02:10)
[2021-06-09] MEDS: SULFAMETHOXAZOLE/TRIMETHOPRIM 800/160MG TABLET PO SCH ×3 (06:11→20:17)
[2021-06-09] MEDS: THEOPHYLLINE ANHYDROUS 80 MG/15 ML 120ML PO SCH ×3 (06:11→20:21)
[2021-06-09 06:17] LABS: HEMATOCRIT. 41.1 % (42.0-52.0); HEMOGLOBIN. 13.2 g/dL (14.0-18.0); MEAN CORPUSCULAR HEMOGLOBIN 30.3 pg (28.0-32.0); MEAN CORPUSCULAR VOLUME 94.5 fL (80.0-94.0); MEAN PLATELET VOLUME 9.7 fl (7.4-10.4); PLATELET 248 x1000/uL (130-400); RED BLOOD CELL COUNT 4.35 mill/uL (4.7-6.1); RED CELL DISTRIBUTION WIDTH 14.3 % (11.6-14.6)
[2021-06-09 06:34] LABS: CHLORIDE 85 mEq/L (98-107)
[2021-06-09] MEDS: ALBUTEROL (0.083%) 2.5MG/3ML NEB INH SCH (08:28)
[2021-06-09] MEDS: GUAIFENESIN/DM 600MG/30MG ER TAB 12HR PO SCH ×2 (09:00→20:16)
[2021-06-09] MEDS: ENOXAPARIN 40MG/0.4ML SYR SUBCUT SCH ×2 (09:00→17:00)
[2021-06-09] MEDS: METHYLPREDNISOLONE SOD SUCC 40 MG/ML VIAL IV SCH ×2 (09:57→20:16)
[2021-06-09] MEDS: ASPIRIN 81MG TABLET PO SCH (09:58)
[2021-06-09] MEDS: ALPRAZOLAM 0.25 MG TABLET PO PRN ×2 (09:58→20:16)
[2021-06-09] MEDS: FINASTERIDE 5MG TABLET PO SCH (09:58)
[2021-06-09] MEDS: SODIUM POLYSTYRENE SULFONATE 15 G/60 ML BOT PO SCH ×3 (10:00→10:09)
[2021-06-09] MEDS ORDERED: ALBUTEROL (0.083%) 2.5MG/3ML NEB HHN NR (10:30)
[2021-06-09 14:02] LABS: BG BASE EXCESS 20.3 mmol/L (-2.0-2.0); BG CARBOXYHEMOGLOBIN 0.5 % (0.5-1.5); BG DEOXYHEMOGLOBIN 16.8 % (0.0-5.0); BG FRACTION INSPIRED OXYGEN 48; BG HCO3 ACT 48.3 mmol/L (22.0-26.0); BG METHEMOGLOBIN 0.3 % (0.0-1.5); BG OXYGEN SATURATION 83.1 % (92.0-98.5); BG OXYHEMOGLOBIN 82.4 % (94.0-97.0); BG PCO2 71.9 mmHg (35.0-45.0); BG PH 7.445 (7.350-7.450); BG PO2 43.9 mmHg (75.0-100.0); BG SAMPLE SITE RIGHT RADIAL; BG TOTAL HEMOGLOBIN 12.6 g/dL (12.0-18.0); BG VENT MODE NASAL CANNULA
[2021-06-09 14:03] LABS: PLATELET ESTIMATE NORMAL
[2021-06-09] MEDS ORDERED: SODIUM POLYSTYRENE SULFONATE 15 G/60 ML BOT PO NR (14:30)
[2021-06-09] MEDS: IPRATROPIUM/ALBUTEROL 0.5-3(2.5)MG/3ML NEB HHN SCH ×2 (16:41→21:31)
[2021-06-10] VITALS (14 sets, daily range): BP systolic 97–140; BP diastolic 18–95
[2021-06-10] MEDS: IPRATROPIUM/ALBUTEROL 0.5-3(2.5)MG/3ML NEB HHN SCH ×6 (01:21→20:08)
[2021-06-10] MEDS: THEOPHYLLINE ANHYDROUS 80 MG/15 ML 120ML PO SCH ×3 (05:14→21:54)
[2021-06-10] MEDS: SULFAMETHOXAZOLE/TRIMETHOPRIM 800/160MG TABLET PO SCH ×3 (05:14→21:54)
[2021-06-10 06:16] LABS: CHLORIDE 87 mEq/L (98-107)
[2021-06-10 06:18] LABS: BASOPHILS % 0.1 % (0.0-2.0); HEMATOCRIT. 33.6 % (42.0-52.0); HEMOGLOBIN. 11.2 g/dL (14.0-18.0); LYMPHOCYTES % 7.4 % (20.0-50.0); MEAN CORPUSCULAR HEMOGLOBIN 31.3 pg (28.0-32.0); MEAN CORPUSCULAR VOLUME 93.5 fL (80.0-94.0); MONOCYTES % 6.1 % (2.0-8.0); NEUTROPHILS % 86.4 % (40.0-76.0); PLATELET 235 x1000/uL (130-400); RED BLOOD CELL COUNT 3.59 mill/uL (4.7-6.1); RED CELL DISTRIBUTION WIDTH 14.1 % (11.6-14.6)
[2021-06-10] MEDS: FINASTERIDE 5MG TABLET PO SCH (08:54)
[2021-06-10] MEDS: ASPIRIN 81MG TABLET PO SCH (08:54)
[2021-06-10] MEDS: GUAIFENESIN/DM 600MG/30MG ER TAB 12HR PO SCH ×2 (08:54→21:53)
[2021-06-10] MEDS: ENOXAPARIN 40MG/0.4ML SYR SUBCUT SCH ×2 (08:55→17:00)
[2021-06-10] MEDS: METHYLPREDNISOLONE SOD SUCC 40 MG/ML VIAL IV SCH ×2 (11:28→21:53)
[2021-06-10] MEDS: ALPRAZOLAM 0.25 MG TABLET PO PRN ×2 (13:17→21:54)
[2021-06-10 13:48] LABS: BG BASE EXCESS 13.7 mmol/L (-2.0-2.0); BG CARBOXYHEMOGLOBIN 0.1 % (0.5-1.5); BG HCO3 ACT 39.6 mmol/L (22.0-26.0); BG METHEMOGLOBIN 0.3 % (0.0-1.5); BG OXYHEMOGLOBIN 96.6 % (94.0-97.0); BG PCO2 56.1 mmHg (35.0-45.0); BG PH 7.467 (7.350-7.450); BG PO2 91.9 mmHg (75.0-100.0); BG SAMPLE SITE RIGHT RADIAL; BG VENT MODE MASK - BIPAP
[2021-06-10] MEDS: ACETAZOLAMIDE 500MG ER CAPSULE PO SCH (21:53)
[2021-06-11] VITALS (13 sets, daily range): BP systolic 102–136; BP diastolic 71–97
[2021-06-11] MEDS: IPRATROPIUM/ALBUTEROL 0.5-3(2.5)MG/3ML NEB HHN SCH ×6 (00:44→20:33)
[2021-06-11] MEDS ORDERED: LIDOCAINE HCL/PF 1% 2ML VIAL ONE (05:00)
[2021-06-11] MEDS: THEOPHYLLINE ANHYDROUS 80 MG/15 ML 120ML PO SCH ×3 (06:14→21:08)
[2021-06-11 06:58] LABS: HEMATOCRIT. 31.5 % (42.0-52.0); HEMOGLOBIN. 10.7 g/dL (14.0-18.0); MEAN CORPUSCULAR HEMOGLOBIN 31.7 pg (28.0-32.0); MEAN CORPUSCULAR VOLUME 93.3 fL (80.0-94.0); PLATELET 208 x1000/uL (130-400); RED BLOOD CELL COUNT 3.37 mill/uL (4.7-6.1); RED CELL DISTRIBUTION WIDTH 14.1 % (11.6-14.6)
[2021-06-11 06:59] LABS: CHLORIDE 90 mEq/L (98-107)
[2021-06-11] MEDS: ENOXAPARIN 40MG/0.4ML SYR SUBCUT SCH (08:05)
[2021-06-11] MEDS: METHYLPREDNISOLONE SOD SUCC 40 MG/ML VIAL IV SCH ×2 (08:56→21:07)
[2021-06-11] MEDS: ASPIRIN 81MG TABLET PO SCH (08:57)
[2021-06-11] MEDS: ACETAZOLAMIDE 500MG ER CAPSULE PO SCH ×2 (08:57→21:07)
[2021-06-11] MEDS: FINASTERIDE 5MG TABLET PO SCH (08:57)
[2021-06-11] MEDS: GUAIFENESIN/DM 600MG/30MG ER TAB 12HR PO SCH ×2 (08:57→21:07)
[2021-06-11 09:16] LABS: BG BASE EXCESS 8.1 mmol/L (-2.0-2.0); BG CARBOXYHEMOGLOBIN 0.3 % (0.5-1.5); BG DEOXYHEMOGLOBIN 4.5 % (0.0-5.0); BG FRACTION INSPIRED OXYGEN 36; BG HCO3 ACT 32.3 mmol/L (22.0-26.0); BG METHEMOGLOBIN 0.1 % (0.0-1.5); BG OXYGEN SATURATION 95.5 % (92.0-98.5); BG OXYHEMOGLOBIN 95.1 % (94.0-97.0); BG PCO2 43.7 mmHg (35.0-45.0); BG PH 7.487 (7.350-7.450); BG SAMPLE SITE RIGHT RADIAL; BG TOTAL HEMOGLOBIN 11.3 g/dL (12.0-18.0); BG VENT MODE NASAL CANNULA
[2021-06-11] MEDS: ALPRAZOLAM 0.25 MG TABLET PO PRN ×2 (10:51→21:07)
[2021-06-11] MEDS: SULFAMETHOXAZOLE/TRIMETHOPRIM 400/80MG TAB PO SCH (13:37)
[2021-06-11] MEDS: HYDROCODONE/ACETAMINOPHEN 5/325MG TABLET PO PRN (17:06)
[2021-06-12] VITALS (12 sets, daily range): BP systolic 104–146; BP diastolic 66–92
[2021-06-12] MEDS: IPRATROPIUM/ALBUTEROL 0.5-3(2.5)MG/3ML NEB HHN SCH ×6 (01:48→21:31)
[2021-06-12] MEDS: THEOPHYLLINE ANHYDROUS 80 MG/15 ML 120ML PO SCH ×3 (05:10→21:24)
[2021-06-12 08:04] LABS: PLATELET ESTIMATE NORMAL
[2021-06-12] MEDS: ENOXAPARIN 40MG/0.4ML SYR SUBCUT SCH (09:00)
[2021-06-12] MEDS: FINASTERIDE 5MG TABLET PO SCH (09:02)
[2021-06-12] MEDS: METHYLPREDNISOLONE SOD SUCC 40 MG/ML VIAL IV SCH ×2 (09:02→21:24)
[2021-06-12] MEDS: ACETAZOLAMIDE 500MG ER CAPSULE PO SCH ×2 (09:02→21:24)
[2021-06-12] MEDS: SULFAMETHOXAZOLE/TRIMETHOPRIM 400/80MG TAB PO SCH (09:02)
[2021-06-12] MEDS: ASPIRIN 81MG TABLET PO SCH (09:02)
[2021-06-12] MEDS: GUAIFENESIN/DM 600MG/30MG ER TAB 12HR PO SCH ×2 (09:02→21:23)
[2021-06-12] MEDS: ALPRAZOLAM 0.25 MG TABLET PO PRN ×2 (09:47→20:27)
[2021-06-12] MEDS ORDERED: POLYETHYLENE GLYCOL 3350 (17GM) 1 DOSE PACK PO NR (16:00)
[2021-06-12] MEDS: HYDROCODONE/ACETAMINOPHEN 5/325MG TABLET PO PRN (20:12)
[2021-06-13] VITALS (13 sets, daily range): BP systolic 117–144; BP diastolic 57–111
[2021-06-13] MEDS: IPRATROPIUM/ALBUTEROL 0.5-3(2.5)MG/3ML NEB HHN SCH ×6 (02:00→21:07)
[2021-06-13] MEDS: THEOPHYLLINE ANHYDROUS 80 MG/15 ML 120ML PO SCH ×3 (06:11→21:33)
[2021-06-13] MEDS ORDERED: SORBITOL 70% SOLN 30ML PO NR (08:45)
[2021-06-13] MEDS ORDERED: HYDROCODONE/ACETAMINOPHEN 5/325MG TABLET PO PRN (08:45)
[2021-06-13] MEDS ORDERED: NA PHOS,M-B/NA PHOS,DI-BA ENEMA 118ML PR NR (08:45)
[2021-06-13] MEDS ORDERED: NALOXONE HCL 0.4MG/ML VIAL IV PRN (09:00)
[2021-06-13] MEDS: ENOXAPARIN 40MG/0.4ML SYR SUBCUT SCH (09:00)
[2021-06-13] MEDS: ACETAZOLAMIDE 500MG ER CAPSULE PO SCH ×2 (09:00→21:33)
[2021-06-13] MEDS: METHYLPREDNISOLONE SOD SUCC 40 MG/ML VIAL IV SCH ×2 (09:07→21:33)
[2021-06-13] MEDS: FINASTERIDE 5MG TABLET PO SCH (09:07)
[2021-06-13] MEDS: ASPIRIN 81MG TABLET PO SCH (09:07)
[2021-06-13] MEDS: SULFAMETHOXAZOLE/TRIMETHOPRIM 400/80MG TAB PO SCH (09:07)
[2021-06-13] MEDS: GUAIFENESIN/DM 600MG/30MG ER TAB 12HR PO SCH ×2 (09:07→21:33)
[2021-06-13] MEDS: ALPRAZOLAM 0.25 MG TABLET PO PRN (21:33)
[2021-06-14] VITALS (12 sets, daily range): BP systolic 91–126; BP diastolic 57–86
[2021-06-14] MEDS: IPRATROPIUM/ALBUTEROL 0.5-3(2.5)MG/3ML NEB HHN SCH ×6 (01:00→21:02)
[2021-06-14] MEDS: THEOPHYLLINE ANHYDROUS 80 MG/15 ML 120ML PO SCH ×3 (05:51→21:17)
[2021-06-14 08:06] LABS: HEMATOCRIT. 32.7 % (42.0-52.0); HEMOGLOBIN. 11.1 g/dL (14.0-18.0); MEAN CORPUSCULAR HEMOGLOBIN 32.3 pg (28.0-32.0); MEAN CORPUSCULAR VOLUME 94.9 fL (80.0-94.0); MEAN PLATELET VOLUME 9.1 fl (7.4-10.4); PLATELET 215 x1000/uL (130-400); RED BLOOD CELL COUNT 3.44 mill/uL (4.7-6.1); RED CELL DISTRIBUTION WIDTH 14.7 % (11.6-14.6)
[2021-06-14] MEDS: ENOXAPARIN 40MG/0.4ML SYR SUBCUT SCH ×2 (08:28→08:49)
[2021-06-14] MEDS: ACETAZOLAMIDE 500MG ER CAPSULE PO SCH ×2 (08:29→21:16)
[2021-06-14] MEDS: ASPIRIN 81MG TABLET PO SCH (08:29)
[2021-06-14] MEDS: SULFAMETHOXAZOLE/TRIMETHOPRIM 400/80MG TAB PO SCH (08:29)
[2021-06-14] MEDS: FINASTERIDE 5MG TABLET PO SCH (08:29)
[2021-06-14] MEDS: ALPRAZOLAM 0.25 MG TABLET PO PRN ×2 (08:29→20:28)
[2021-06-14] MEDS: GUAIFENESIN/DM 600MG/30MG ER TAB 12HR PO SCH ×2 (08:29→21:17)
[2021-06-14 09:08] LABS: BG BASE EXCESS 2.2 mmol/L (-2.0-2.0); BG CARBOXYHEMOGLOBIN 0.3 % (0.5-1.5); BG DEOXYHEMOGLOBIN 4.8 % (0.0-5.0); BG FRACTION INSPIRED OXYGEN 36; BG HCO3 ACT 28.6 mmol/L (22.0-26.0); BG METHEMOGLOBIN 0.2 % (0.0-1.5); BG OXYGEN SATURATION 95.2 % (92.0-98.5); BG OXYHEMOGLOBIN 94.7 % (94.0-97.0); BG PCO2 53.2 mmHg (35.0-45.0); BG PH 7.349 (7.350-7.450); BG PO2 73.9 mmHg (75.0-100.0); BG SAMPLE SITE LEFT RADIAL; BG TOTAL HEMOGLOBIN 11.3 g/dL (12.0-18.0); BG VENT MODE NASAL CANNULA
[2021-06-14 09:20] LABS: CHLORIDE 102 mEq/L (98-107)
[2021-06-14 11:25] LABS: PLATELET ESTIMATE NORMAL
[2021-06-14] MEDS ORDERED: THEOL PO (17:35)
[2021-06-14] MEDS: METHYLPREDNISOLONE SOD SUCC 40 MG/ML VIAL IV SCH (21:16)
[2021-06-15] VITALS (12 sets, daily range): BP systolic 98–143; BP diastolic 61–98
[2021-06-15] MEDS: IPRATROPIUM/ALBUTEROL 0.5-3(2.5)MG/3ML NEB HHN SCH ×6 (00:52→20:48)
[2021-06-15] MEDS: THEOPHYLLINE ANHYDROUS 80 MG/15 ML 120ML PO SCH ×3 (06:32→21:42)
[2021-06-15] MEDS: FINASTERIDE 5MG TABLET PO SCH (08:17)
[2021-06-15] MEDS: GUAIFENESIN/DM 600MG/30MG ER TAB 12HR PO SCH ×2 (08:17→20:41)
[2021-06-15] MEDS: ASPIRIN 81MG TABLET PO SCH (08:17)
[2021-06-15] MEDS: SULFAMETHOXAZOLE/TRIMETHOPRIM 400/80MG TAB PO SCH (08:17)
[2021-06-15] MEDS: ENOXAPARIN 40MG/0.4ML SYR SUBCUT SCH (08:17)
[2021-06-15] MEDS: ACETAZOLAMIDE 500MG ER CAPSULE PO SCH ×2 (08:17→20:41)
[2021-06-15] MEDS: ALPRAZOLAM 0.25 MG TABLET PO PRN ×2 (14:54→21:43)
[2021-06-15] MEDS: METHYLPREDNISOLONE SOD SUCC 40 MG/ML VIAL IV SCH (20:41)
[2021-06-16] VITALS (11 sets, daily range): BP systolic 115–134; BP diastolic 69–91
[2021-06-16] MEDS: IPRATROPIUM/ALBUTEROL 0.5-3(2.5)MG/3ML NEB HHN SCH ×5 (02:13→15:06)
[2021-06-16] MEDS: THEOPHYLLINE ANHYDROUS 80 MG/15 ML 120ML PO SCH ×2 (07:00→14:00)
[2021-06-16] MEDS: SULFAMETHOXAZOLE/TRIMETHOPRIM 400/80MG TAB PO SCH (08:25)
[2021-06-16] MEDS: ASPIRIN 81MG TABLET PO SCH (08:25)
[2021-06-16] MEDS: ACETAZOLAMIDE 500MG ER CAPSULE PO SCH (08:25)
[2021-06-16] MEDS: GUAIFENESIN/DM 600MG/30MG ER TAB 12HR PO SCH (08:25)
[2021-06-16] MEDS: ENOXAPARIN 40MG/0.4ML SYR SUBCUT SCH (08:25)
[2021-06-16] MEDS: ALPRAZOLAM 0.25 MG TABLET PO PRN (15:16)
== END 2021-06-16 18:54 | DRG 890 ==
LOC: ER 17:46 → MICUSO 23:39 → EDBEDREQTM 23:45 → EDBEDREQ 23:45 → 7WST 05-18 00:08 → 7EST 05-25 11:35 → 5WST 06-08 09:50 → 3WST 06-08 17:57
PROVIDERS: ADMIT Internal Medicine; ATTEND Internal Medicine
PROC: 5A09357 Assistance with Respiratory Ventilation, Less than 24 Consecutive Hours, Continuous Positive Airway Pressure (ICD-10-PCS; 2021-05-17)
PROC: 5A09457 Assistance with Respiratory Ventilation, 24-96 Consecutive Hours, Continuous Positive Airway Pressure (ICD-10-PCS; 2021-05-18)
PROC: 5A09557 Assistance with Respiratory Ventilation, Greater than 96 Consecutive Hours, Continuous Positive Airway Pressure (ICD-10-PCS; 2021-05-20)
PROC: 5A09357 Assistance with Respiratory Ventilation, Less than 24 Consecutive Hours, Continuous Positive Airway Pressure (ICD-10-PCS; principal; 2021-05-26)
PROC: 5A09357 Assistance with Respiratory Ventilation, Less than 24 Consecutive Hours, Continuous Positive Airway Pressure (ICD-10-PCS; 2021-05-26)
PROC: 5A09357 Assistance with Respiratory Ventilation, Less than 24 Consecutive Hours, Continuous Positive Airway Pressure (ICD-10-PCS; 2021-05-27)
PROC: 5A09357 Assistance with Respiratory Ventilation, Less than 24 Consecutive Hours, Continuous Positive Airway Pressure (ICD-10-PCS; 2021-05-27)
PROC: 5A09457 Assistance with Respiratory Ventilation, 24-96 Consecutive Hours, Continuous Positive Airway Pressure (ICD-10-PCS; 2021-05-28)
PROC: 5A09357 Assistance with Respiratory Ventilation, Less than 24 Consecutive Hours, Continuous Positive Airway Pressure (ICD-10-PCS; 2021-06-01)
DX: A41.89 Other specified sepsis (principal); B20 Human immunodeficiency virus [HIV] disease; J96.01 Acute respiratory failure with hypoxia; J12.82 Pneumonia due to coronavirus disease 2019; J96.02 Acute respiratory failure with hypercapnia; U07.1 COVID-19; J44.0 Chronic obstructive pulmonary disease with (acute) lower respiratory infection; J44.1 Chronic obstructive pulmonary disease with (acute) exacerbation; Z66 Do not resuscitate; N40.0 Benign prostatic hyperplasia without lower urinary tract symptoms; I50.30 Unspecified diastolic (congestive) heart failure; I11.0 Hypertensive heart disease with heart failure; F17.210 Nicotine dependence, cigarettes, uncomplicated; F14.10 Cocaine abuse, uncomplicated; E87.3 Alkalosis; Z99.81 Dependence on supplemental oxygen; Z82.49 Family history of ischemic heart disease and other diseases of the circulatory system
CPT/HCPCS: 36415; 36600; 71045; 71275; 78580; 80048; 80053; 82375; 82728; 82805; 83735; 83880; 84132; 84145; 84484; 85025; 85027; 85379; 86140; 87426; 93005; 93306; 94003; 94640; 94660; 97162; 99291; J0456; J0696; J1100; J1650; J1940; J1956; J2270; J2920; J2930; J3475; J3490; J7042; Q9967

== ENCOUNTER 2021-10-16 05:57 | Inpatient (IN) | payer OTHER ==
[~2021-10-16] VITALS: Ht 185.4 cm; Wt 59.4 kg
[~2021-10-16 05:57] MED LIST changes: -ALBU6.7H9 INH; -ALBUL MT; -FLUT1BLS9 IH; -PRED10TA MT; +THEOL PO
[2021-10-16] MEDS ORDERED: METHYLPREDNISOLONE SOD SUCC 125 MG/2 ML VIAL IV STA (06:09)
[2021-10-16] MEDS ORDERED: IPRATROPIUM BROMIDE (0.02%) 0.5MG/2.5ML NEB HHN STA (06:09)
[2021-10-16] MEDS ORDERED: ALBUTEROL (0.083%) 2.5MG/3ML NEB HHN STA (06:09)
[2021-10-16 06:24] LABS: HEMATOCRIT. 38.3 % (42.0-52.0); HEMOGLOBIN. 12.2 g/dL (14.0-18.0); MEAN CORPUSCULAR HEMOGLOBIN 32.3 pg (28.0-32.0); MEAN CORPUSCULAR VOLUME 101.1 fL (80.0-94.0); MEAN PLATELET VOLUME 8.5 fl (7.4-10.4); PLATELET 141 x1000/uL (130-400); RED BLOOD CELL COUNT 3.78 mill/uL (4.7-6.1); RED CELL DISTRIBUTION WIDTH 15.4 % (11.6-14.6)
[2021-10-16 06:33] LABS: CHLORIDE 107 mEq/L (98-107)
[2021-10-16 06:42] LABS: PLATELET ESTIMATE NORMAL
[2021-10-16] MEDS ORDERED: SODIUM CHLORIDE 0.9% 1,000 ML IV ONE (07:15)
[2021-10-16 07:46] LABS: BG BASE EXCESS 6.4 mmol/L (-2.0-2.0); BG DEOXYHEMOGLOBIN 3.1 % (0.0-5.0); BG HCO3 ACT 34.7 mmol/L (22.0-26.0); BG METHEMOGLOBIN 0.2 % (0.0-1.5); BG OXYGEN SATURATION 96.9 % (92.0-98.5); BG OXYHEMOGLOBIN 96.7 % (94.0-97.0); BG PCO2 69.7 mmHg (35.0-45.0); BG PH 7.315 (7.350-7.450); BG PO2 99.1 mmHg (75.0-100.0); BG SAMPLE SITE RIGHT RADIAL; BG TOTAL HEMOGLOBIN 12.5 g/dL (12.0-18.0); BG VENT MODE MASK - BIPAP
[2021-10-16] MEDS: SULFAMETHOXAZOLE/TRIMETHOPRIM 800/160MG TABLET PO SCH (12:42)
[2021-10-16] MEDS ORDERED: ONDANSETRON HCL 4MG/2ML INJ IV PRN (16:00)
[2021-10-16] MEDS ORDERED: ACETAMINOPHEN 325MG TABLET PO PRN (16:00)
[2021-10-16] MEDS: IPRATROPIUM/ALBUTEROL 0.5-3(2.5)MG/3ML NEB HHN SCH ×3 (16:00→23:31)
[2021-10-16 16:17] LABS: BG BASE EXCESS 7.5 mmol/L (-2.0-2.0); BG CARBOXYHEMOGLOBIN 0.3 % (0.5-1.5); BG DEOXYHEMOGLOBIN 4.1 % (0.0-5.0); BG HCO3 ACT 35.3 mmol/L (22.0-26.0); BG METHEMOGLOBIN 0.2 % (0.0-1.5); BG OXYGEN SATURATION 95.9 % (92.0-98.5); BG OXYHEMOGLOBIN 95.4 % (94.0-97.0); BG PCO2 66.1 mmHg (35.0-45.0); BG PH 7.346 (7.350-7.450); BG PO2 80.9 mmHg (75.0-100.0); BG SAMPLE SITE RIGHT RADIAL; BG TOTAL HEMOGLOBIN 12.8 g/dL (12.0-18.0); BG VENT MODE NASAL CANNULA
[2021-10-16] MEDS: SODIUM CHLORIDE 0.9% 1,000 ML IV SCH (16:19)
[2021-10-16] MEDS: ENOXAPARIN 40MG/0.4ML SYR SUBCUT SCH ×2 (16:24→16:27)
[2021-10-16] MEDS: PANTOPRAZOLE SODIUM 40 MG/VIAL IV SCH ×4 (16:24→17:52)
[2021-10-16] MEDS: METHYLPREDNISOLONE SOD SUCC 40 MG/ML VIAL IV SCH ×2 (16:24→22:10)
[2021-10-16] MEDS: FINASTERIDE 5MG TABLET PO SCH (16:39)
[2021-10-16 20:40] VITALS: BP 160/95
[2021-10-16] MEDS: THEOPHYLLINE ANHYDROUS 80 MG/15 ML 120ML PO SCH (22:10)
[2021-10-17] VITALS: BP 143/85
[2021-10-17 00:32] LABS: CREATINE KINASE MB FRACTION 5.9 ng/mL (0.5-3.6)
[2021-10-17 04:00] VITALS: BP 120/67
[2021-10-17] MEDS: IPRATROPIUM/ALBUTEROL 0.5-3(2.5)MG/3ML NEB HHN SCH ×5 (04:30→19:59)
[2021-10-17] MEDS: METHYLPREDNISOLONE SOD SUCC 40 MG/ML VIAL IV SCH ×3 (06:08→21:43)
[2021-10-17] MEDS: THEOPHYLLINE ANHYDROUS 80 MG/15 ML 120ML PO SCH ×3 (06:08→21:44)
[2021-10-17 07:42] LABS: MEAN CORPUSCULAR HEMOGLOBIN 32.1 pg (28.0-32.0); MEAN CORPUSCULAR VOLUME 98.9 fL (80.0-94.0); MEAN PLATELET VOLUME 9.1 fl (7.4-10.4); PLATELET 128 x1000/uL (130-400); RED BLOOD CELL COUNT 3.44 mill/uL (4.7-6.1); RED CELL DISTRIBUTION WIDTH 15.1 % (11.6-14.6)
[2021-10-17 07:50] LABS: CHLORIDE 102 mEq/L (98-107)
[2021-10-17 08:04] LABS: CREATINE KINASE 90 IU/L (39-308); CREATINE KINASE MB FRACTION 4.7 ng/mL (0.5-3.6)
[2021-10-17 08:30] VITALS: BP 137/85
[2021-10-17] MEDS: GUAIFENESIN 600MG ER TABLET PO SCH ×2 (08:57→21:43)
[2021-10-17] MEDS: SULFAMETHOXAZOLE/TRIMETHOPRIM 800/160MG TABLET PO SCH (08:57)
[2021-10-17] MEDS: TAMSULOSIN HCL 0.4MG SR CAPSULE PO SCH (08:58)
[2021-10-17] MEDS: FINASTERIDE 5MG TABLET PO SCH (08:59)
[2021-10-17 12:00] VITALS: BP 133/71
[2021-10-17 14:22] LABS: PLATELET ESTIMATE SLIGHTLY DECREASED
[2021-10-17 16:00] VITALS: BP 124/73
[2021-10-17] MEDS: ENOXAPARIN 40MG/0.4ML SYR SUBCUT SCH (17:15)
[2021-10-17] MEDS: SODIUM CHLORIDE 0.9% 1,000 ML IV SCH (17:15)
[2021-10-17 20:00] VITALS: BP 129/80
[2021-10-18] VITALS: BP 115/66
[2021-10-18] MEDS: IPRATROPIUM/ALBUTEROL 0.5-3(2.5)MG/3ML NEB HHN SCH ×6 (00:33→20:26)
[2021-10-18] MEDS: LORAZEPAM 1MG TABLET PO PRN ×2 (02:05→21:57)
[2021-10-18] MEDS: SODIUM CHLORIDE 0.9% 1,000 ML IV SCH ×2 (02:06→18:36)
[2021-10-18 04:00] VITALS: BP 121/71
[2021-10-18] MEDS: METHYLPREDNISOLONE SOD SUCC 40 MG/ML VIAL IV SCH ×3 (06:20→21:57)
[2021-10-18] MEDS: THEOPHYLLINE ANHYDROUS 80 MG/15 ML 120ML PO SCH ×3 (06:21→23:45)
[2021-10-18 07:19] LABS: HEMATOCRIT. 35.3 % (42.0-52.0); HEMOGLOBIN. 11.4 g/dL (14.0-18.0); MEAN CORPUSCULAR HEMOGLOBIN 31.9 pg (28.0-32.0); MEAN CORPUSCULAR VOLUME 99.1 fL (80.0-94.0); MEAN PLATELET VOLUME 8.5 fl (7.4-10.4); PLATELET 136 x1000/uL (130-400); RED BLOOD CELL COUNT 3.56 mill/uL (4.7-6.1)
[2021-10-18 07:38] LABS: CHLORIDE 102 mEq/L (98-107)
[2021-10-18 08:28] VITALS: BP 126/59
[2021-10-18] MEDS: TAMSULOSIN HCL 0.4MG SR CAPSULE PO SCH (09:49)
[2021-10-18] MEDS: FINASTERIDE 5MG TABLET PO SCH (09:49)
[2021-10-18] MEDS: SULFAMETHOXAZOLE/TRIMETHOPRIM 800/160MG TABLET PO SCH (09:49)
[2021-10-18] MEDS: PANTOPRAZOLE SODIUM 40 MG/VIAL IV SCH (09:49)
[2021-10-18] MEDS: GUAIFENESIN 600MG ER TABLET PO SCH ×2 (09:49→21:57)
[2021-10-18 11:21] LABS: PLATELET ESTIMATE NORMAL
[2021-10-18 12:14] VITALS: BP 114/59
[2021-10-18] MEDS ORDERED: IPRATROPIUM/ALBUTEROL 0.5-3(2.5)MG/3ML NEB HHN PRN (15:30)
[2021-10-18 16:30] VITALS: BP 126/60
[2021-10-18] MEDS: ENOXAPARIN 40MG/0.4ML SYR SUBCUT SCH (17:28)
[2021-10-18 20:00] VITALS: BP 149/98
[2021-10-19] VITALS: BP 146/97
[2021-10-19] MEDS: IPRATROPIUM/ALBUTEROL 0.5-3(2.5)MG/3ML NEB HHN SCH ×6 (00:02→20:49)
[2021-10-19 04:00] VITALS: BP 116/67
[2021-10-19] MEDS: METHYLPREDNISOLONE SOD SUCC 40 MG/ML VIAL IV SCH ×2 (05:05→17:04)
[2021-10-19] MEDS: THEOPHYLLINE ANHYDROUS 80 MG/15 ML 120ML PO SCH ×3 (05:06→21:31)
[2021-10-19 08:00] VITALS: BP 112/75
[2021-10-19 08:46] LABS: HEMATOCRIT. 41.1 % (42.0-52.0); HEMOGLOBIN. 13.3 g/dL (14.0-18.0); MEAN CORPUSCULAR HEMOGLOBIN 31.8 pg (28.0-32.0); MEAN CORPUSCULAR VOLUME 98.2 fL (80.0-94.0); MEAN PLATELET VOLUME 8.3 fl (7.4-10.4); PLATELET 165 x1000/uL (130-400); RED BLOOD CELL COUNT 4.18 mill/uL (4.7-6.1); RED CELL DISTRIBUTION WIDTH 15.4 % (11.6-14.6)
[2021-10-19 09:01] LABS: CHLORIDE 99 mEq/L (98-107)
[2021-10-19] MEDS: PANTOPRAZOLE SODIUM 40 MG/VIAL IV SCH (09:43)
[2021-10-19] MEDS: TAMSULOSIN HCL 0.4MG SR CAPSULE PO SCH (09:43)
[2021-10-19] MEDS: SULFAMETHOXAZOLE/TRIMETHOPRIM 800/160MG TABLET PO SCH (09:43)
[2021-10-19] MEDS: GUAIFENESIN 600MG ER TABLET PO SCH ×2 (09:44→21:29)
[2021-10-19] MEDS: FINASTERIDE 5MG TABLET PO SCH (09:44)
[2021-10-19] MEDS: SODIUM CHLORIDE 0.9% 1,000 ML IV SCH (10:55)
[2021-10-19 12:00] VITALS: BP 115/73
[2021-10-19 13:45] LABS: PLATELET ESTIMATE NORMAL
[2021-10-19 16:00] VITALS: BP 117/71
[2021-10-19] MEDS: ENOXAPARIN 40MG/0.4ML SYR SUBCUT SCH (17:00)
[2021-10-19] MEDS: LORAZEPAM 1MG TABLET PO PRN (17:04)
[2021-10-19 20:00] VITALS: BP 124/71
[2021-10-20] VITALS (8 sets, daily range): BP systolic 112–156; BP diastolic 70–93
[2021-10-20] MEDS: IPRATROPIUM/ALBUTEROL 0.5-3(2.5)MG/3ML NEB HHN SCH ×6 (00:26→17:09)
[2021-10-20] MEDS: METHYLPREDNISOLONE SOD SUCC 40 MG/ML VIAL IV SCH ×2 (04:19→16:33)
[2021-10-20] MEDS: THEOPHYLLINE ANHYDROUS 80 MG/15 ML 120ML PO SCH ×3 (06:21→21:37)
[2021-10-20 06:26] LABS: CHLORIDE 100 mEq/L (98-107)
[2021-10-20 06:31] LABS: HEMATOCRIT. 36.4 % (42.0-52.0); HEMOGLOBIN. 11.9 g/dL (14.0-18.0); MEAN CORPUSCULAR HEMOGLOBIN 32.4 pg (28.0-32.0); MEAN CORPUSCULAR VOLUME 98.9 fL (80.0-94.0); MEAN PLATELET VOLUME 8.8 fl (7.4-10.4); PLATELET 139 x1000/uL (130-400); RED BLOOD CELL COUNT 3.68 mill/uL (4.7-6.1); RED CELL DISTRIBUTION WIDTH 14.8 % (11.6-14.6)
[2021-10-20] MEDS: SULFAMETHOXAZOLE/TRIMETHOPRIM 800/160MG TABLET PO SCH (09:28)
[2021-10-20] MEDS: GUAIFENESIN 600MG ER TABLET PO SCH ×2 (09:28→21:36)
[2021-10-20] MEDS: TAMSULOSIN HCL 0.4MG SR CAPSULE PO SCH (09:28)
[2021-10-20] MEDS: FINASTERIDE 5MG TABLET PO SCH (09:29)
[2021-10-20] MEDS: FAMOTIDINE 20MG TABLET PO SCH ×2 (09:29→21:36)
[2021-10-20] MEDS ORDERED: P20 MT (13:58)
[2021-10-20 14:48] LABS: PLATELET ESTIMATE NORMAL
[2021-10-20] MEDS: ENOXAPARIN 40MG/0.4ML SYR SUBCUT SCH (16:32)
[2021-10-20] MEDS ORDERED: DILTIAZEM HCL 5MG/ML 5ML VIAL IV NR (19:15)
[2021-10-20] MEDS: IPRATROPIUM BROMIDE (0.02%) 0.5MG/2.5ML NEB HHN SCH ×2 (19:33→23:54)
[2021-10-20] MEDS: LORAZEPAM 1MG TABLET PO PRN (21:36)
[2021-10-20] MEDS: DILTIAZEM HCL 30MG TABLET PO SCH (23:35)
[2021-10-21] MEDS: IPRATROPIUM BROMIDE (0.02%) 0.5MG/2.5ML NEB HHN SCH ×6 (03:58→23:41)
[2021-10-21 04:00] VITALS: BP 120/70
[2021-10-21] MEDS: THEOPHYLLINE ANHYDROUS 80 MG/15 ML 120ML PO SCH ×3 (06:00→21:38)
[2021-10-21] MEDS: DILTIAZEM HCL 30MG TABLET PO SCH ×3 (06:41→17:20)
[2021-10-21] MEDS: METHYLPREDNISOLONE SOD SUCC 40 MG/ML VIAL IV SCH ×2 (06:41→17:16)
[2021-10-21 07:31] LABS: HEMATOCRIT. 37.8 % (42.0-52.0); HEMOGLOBIN. 12.3 g/dL (14.0-18.0); MEAN CORPUSCULAR VOLUME 98.1 fL (80.0-94.0); MEAN PLATELET VOLUME 8.6 fl (7.4-10.4); PLATELET 147 x1000/uL (130-400); RED BLOOD CELL COUNT 3.85 mill/uL (4.7-6.1); RED CELL DISTRIBUTION WIDTH 14.9 % (11.6-14.6)
[2021-10-21 07:42] LABS: CHLORIDE 99 mEq/L (98-107)
[2021-10-21 08:00] VITALS: BP 128/73
[2021-10-21] MEDS: FAMOTIDINE 20MG TABLET PO SCH ×2 (09:00→21:36)
[2021-10-21] MEDS: FINASTERIDE 5MG TABLET PO SCH (09:34)
[2021-10-21] MEDS: SULFAMETHOXAZOLE/TRIMETHOPRIM 800/160MG TABLET PO SCH (09:34)
[2021-10-21] MEDS: TAMSULOSIN HCL 0.4MG SR CAPSULE PO SCH (09:34)
[2021-10-21] MEDS: GUAIFENESIN 600MG ER TABLET PO SCH ×2 (09:34→21:36)
[2021-10-21 12:30] VITALS: BP 118/75
[2021-10-21 13:58] LABS: PLATELET ESTIMATE NORMAL
[2021-10-21 16:00] VITALS: BP 122/69
[2021-10-21] MEDS: ENOXAPARIN 40MG/0.4ML SYR SUBCUT SCH (17:00)
[2021-10-21 20:00] VITALS: BP 155/94
[2021-10-22] VITALS: BP 151/90
[2021-10-22] MEDS: LORAZEPAM 1MG TABLET PO PRN ×4 (00:32→23:36)
[2021-10-22] MEDS: DILTIAZEM HCL 30MG TABLET PO SCH ×5 (00:32→23:36)
[2021-10-22] MEDS: IPRATROPIUM BROMIDE (0.02%) 0.5MG/2.5ML NEB HHN SCH ×5 (03:33→20:10)
[2021-10-22 04:00] VITALS: BP 123/83
[2021-10-22] MEDS: THEOPHYLLINE ANHYDROUS 80 MG/15 ML 120ML PO SCH (04:55)
[2021-10-22] MEDS: METHYLPREDNISOLONE SOD SUCC 40 MG/ML VIAL IV SCH ×2 (04:57→15:56)
[2021-10-22 08:11] LABS: HEMATOCRIT. 40.6 % (42.0-52.0); HEMOGLOBIN. 13.2 g/dL (14.0-18.0); MEAN CORPUSCULAR HEMOGLOBIN 31.9 pg (28.0-32.0); MEAN CORPUSCULAR VOLUME 98.1 fL (80.0-94.0); MEAN PLATELET VOLUME 8.9 fl (7.4-10.4); PLATELET 168 x1000/uL (130-400); RED BLOOD CELL COUNT 4.14 mill/uL (4.7-6.1); RED CELL DISTRIBUTION WIDTH 14.9 % (11.6-14.6)
[2021-10-22 08:16] VITALS: BP 156/93
[2021-10-22] MEDS: FINASTERIDE 5MG TABLET PO SCH (08:39)
[2021-10-22] MEDS: GUAIFENESIN 600MG ER TABLET PO SCH ×2 (08:39→20:25)
[2021-10-22] MEDS: SULFAMETHOXAZOLE/TRIMETHOPRIM 800/160MG TABLET PO SCH (08:39)
[2021-10-22] MEDS: TAMSULOSIN HCL 0.4MG SR CAPSULE PO SCH (08:40)
[2021-10-22] MEDS: FAMOTIDINE 20MG TABLET PO SCH ×2 (08:44→20:25)
[2021-10-22 09:08] LABS: CHLORIDE 95 mEq/L (98-107)
[2021-10-22 12:00] VITALS: BP 160/91
[2021-10-22] MEDS: CLONIDINE 0.1MG TABLET PO PRN ×2 (12:10→20:25)
[2021-10-22] MEDS ORDERED: CARLA24 MT (12:36)
[2021-10-22] MEDS ORDERED: MORPHINE SULFATE 2 MG/ML CPJ (NOT FOR IM USE) IV NR (13:30)
[2021-10-22] MEDS ORDERED: HYDRALAZINE 20MG/ML VIAL IV NR (13:30)
[2021-10-22] MEDS: ENOXAPARIN 40MG/0.4ML SYR SUBCUT SCH (15:56)
[2021-10-22 15:59] VITALS: BP 167/90
[2021-10-22 20:00] VITALS: BP 161/84
[2021-10-22] MEDS ORDERED: IOHEXOL-300 100 ML BOTTLE ONE (20:00)
[2021-10-23] VITALS: BP 143/95
[2021-10-23] MEDS: IPRATROPIUM BROMIDE (0.02%) 0.5MG/2.5ML NEB HHN SCH ×7 (00:38→20:38)
[2021-10-23 04:00] VITALS: BP 149/84
[2021-10-23] MEDS: METHYLPREDNISOLONE SOD SUCC 40 MG/ML VIAL IV SCH ×2 (04:02→17:28)
[2021-10-23] MEDS: DILTIAZEM HCL 30MG TABLET PO SCH ×3 (05:32→17:59)
[2021-10-23] MEDS: LORAZEPAM 1MG TABLET PO PRN (05:33)
[2021-10-23 08:00] VITALS: BP 137/89
[2021-10-23 08:24] LABS: HEMATOCRIT. 43.4 % (42.0-52.0); HEMOGLOBIN. 14.3 g/dL (14.0-18.0); MEAN CORPUSCULAR HEMOGLOBIN 32.1 pg (28.0-32.0); MEAN CORPUSCULAR VOLUME 97.8 fL (80.0-94.0); PLATELET 173 x1000/uL (130-400); RED BLOOD CELL COUNT 4.44 mill/uL (4.7-6.1); RED CELL DISTRIBUTION WIDTH 14.9 % (11.6-14.6)
[2021-10-23 08:33] LABS: CHLORIDE 93 mEq/L (98-107)
[2021-10-23] MEDS: SULFAMETHOXAZOLE/TRIMETHOPRIM 800/160MG TABLET PO SCH (09:37)
[2021-10-23] MEDS: FAMOTIDINE 20MG TABLET PO SCH ×2 (09:38→21:37)
[2021-10-23] MEDS: FINASTERIDE 5MG TABLET PO SCH (09:38)
[2021-10-23] MEDS: TAMSULOSIN HCL 0.4MG SR CAPSULE PO SCH (09:38)
[2021-10-23] MEDS: GUAIFENESIN 600MG ER TABLET PO SCH ×2 (09:38→21:37)
[2021-10-23 10:35] LABS: PLATELET ESTIMATE NORMAL
[2021-10-23 12:00] VITALS: BP 136/85
[2021-10-23 16:16] VITALS: BP 141/78
[2021-10-23] MEDS: ENOXAPARIN 40MG/0.4ML SYR SUBCUT SCH ×2 (17:00→17:28)
[2021-10-23 20:00] VITALS: BP 125/102
[2021-10-23 23:07] LABS: PLATELET ESTIMATE NORMAL
[2021-10-24] VITALS (7 sets, daily range): BP systolic 118–159; BP diastolic 82–102
[2021-10-24] MEDS: LORAZEPAM 1MG TABLET PO PRN ×2 (00:04→23:22)
[2021-10-24] MEDS: DILTIAZEM HCL 30MG TABLET PO SCH ×5 (00:18→23:29)
[2021-10-24] MEDS: IPRATROPIUM BROMIDE (0.02%) 0.5MG/2.5ML NEB HHN SCH ×7 (00:30→23:06)
[2021-10-24] MEDS: METHYLPREDNISOLONE SOD SUCC 40 MG/ML VIAL IV SCH ×2 (03:38→17:11)
[2021-10-24 06:17] LABS: CHLORIDE 94 mEq/L (98-107)
[2021-10-24 06:25] LABS: HEMATOCRIT. 43.5 % (42.0-52.0); HEMOGLOBIN. 14.2 g/dL (14.0-18.0); MEAN CORPUSCULAR HEMOGLOBIN 31.9 pg (28.0-32.0); MEAN CORPUSCULAR VOLUME 97.8 fL (80.0-94.0); MEAN PLATELET VOLUME 9.2 fl (7.4-10.4); PLATELET 185 x1000/uL (130-400); RED BLOOD CELL COUNT 4.45 mill/uL (4.7-6.1); RED CELL DISTRIBUTION WIDTH 14.7 % (11.6-14.6)
[2021-10-24] MEDS: GUAIFENESIN 600MG ER TABLET PO SCH ×2 (09:17→21:47)
[2021-10-24] MEDS: FINASTERIDE 5MG TABLET PO SCH (09:17)
[2021-10-24] MEDS: SULFAMETHOXAZOLE/TRIMETHOPRIM 800/160MG TABLET PO SCH (09:17)
[2021-10-24] MEDS: FAMOTIDINE 20MG TABLET PO SCH ×2 (09:17→21:00)
[2021-10-24] MEDS: TAMSULOSIN HCL 0.4MG SR CAPSULE PO SCH (09:17)
[2021-10-24] MEDS: IPRATROPIUM BROMIDE (0.02%) 0.5MG/2.5ML NEB HHN PRN ×3 (09:44→23:17)
[2021-10-24] MEDS ORDERED: IOHEXOL-350 100 ML BOTTLE ONE (16:04)
[2021-10-24] MEDS: ENOXAPARIN 40MG/0.4ML SYR SUBCUT SCH (17:00)
[2021-10-25] MEDS: IPRATROPIUM BROMIDE (0.02%) 0.5MG/2.5ML NEB HHN SCH ×4 (03:20→21:03)
[2021-10-25] MEDS: IPRATROPIUM BROMIDE (0.02%) 0.5MG/2.5ML NEB HHN PRN ×2 (03:56→10:20)
[2021-10-25 04:00] VITALS: BP 156/99
[2021-10-25] MEDS: METHYLPREDNISOLONE SOD SUCC 40 MG/ML VIAL IV SCH ×2 (05:09→17:43)
[2021-10-25] MEDS: DILTIAZEM HCL 30MG TABLET PO SCH ×3 (05:11→17:50)
[2021-10-25 08:00] VITALS: BP 142/86
[2021-10-25] MEDS: SULFAMETHOXAZOLE/TRIMETHOPRIM 800/160MG TABLET PO SCH (09:26)
[2021-10-25] MEDS: TAMSULOSIN HCL 0.4MG SR CAPSULE PO SCH (09:26)
[2021-10-25] MEDS: FAMOTIDINE 20MG TABLET PO SCH ×2 (09:26→21:00)
[2021-10-25] MEDS: GUAIFENESIN 600MG ER TABLET PO SCH ×2 (09:26→21:33)
[2021-10-25] MEDS: FINASTERIDE 5MG TABLET PO SCH (09:26)
[2021-10-25 12:00] VITALS: BP 139/2
[2021-10-25] MEDS: LORAZEPAM 1MG TABLET PO PRN ×2 (13:59→21:33)
[2021-10-25 16:00] VITALS: BP 130/82
[2021-10-25] MEDS: ENOXAPARIN 40MG/0.4ML SYR SUBCUT SCH (17:00)
[2021-10-25 18:02] LABS: PLATELET ESTIMATE NORMAL
[2021-10-25 20:00] VITALS: BP 136/65
[2021-10-26] VITALS: BP 152/84
[2021-10-26] MEDS: IPRATROPIUM BROMIDE (0.02%) 0.5MG/2.5ML NEB HHN SCH ×6 (00:40→20:19)
[2021-10-26] MEDS: DILTIAZEM HCL 30MG TABLET PO SCH ×4 (00:55→18:58)
[2021-10-26 04:00] VITALS: BP 165/93
[2021-10-26] MEDS: METHYLPREDNISOLONE SOD SUCC 40 MG/ML VIAL IV SCH ×2 (05:15→18:57)
[2021-10-26] MEDS: CLONIDINE 0.1MG TABLET PO PRN (05:24)
[2021-10-26 08:00] VITALS: BP 119/85
[2021-10-26] MEDS: FAMOTIDINE 20MG TABLET PO SCH ×2 (09:00→20:26)
[2021-10-26] MEDS: TAMSULOSIN HCL 0.4MG SR CAPSULE PO SCH (10:41)
[2021-10-26] MEDS: SULFAMETHOXAZOLE/TRIMETHOPRIM 800/160MG TABLET PO SCH (10:42)
[2021-10-26] MEDS: FINASTERIDE 5MG TABLET PO SCH (10:42)
[2021-10-26] MEDS: GUAIFENESIN 600MG ER TABLET PO SCH ×2 (10:42→20:26)
[2021-10-26 12:00] VITALS: BP 122/87
[2021-10-26] MEDS: LOSARTAN POTASSIUM 25 MG TABLET PO SCH (14:01)
[2021-10-26 16:31] VITALS: BP 125/83
[2021-10-26] MEDS: ENOXAPARIN 40MG/0.4ML SYR SUBCUT SCH (17:00)
[2021-10-26 20:00] VITALS: BP 138/79
[2021-10-26] MEDS: LORAZEPAM 1MG TABLET PO PRN (20:26)
[2021-10-27] VITALS: BP 129/77
[2021-10-27] MEDS: IPRATROPIUM BROMIDE (0.02%) 0.5MG/2.5ML NEB HHN SCH ×4 (00:18→12:00)
[2021-10-27] MEDS: DILTIAZEM HCL 30MG TABLET PO SCH ×3 (01:02→13:03)
[2021-10-27 04:00] VITALS: BP 136/86
[2021-10-27] MEDS: METHYLPREDNISOLONE SOD SUCC 40 MG/ML VIAL IV SCH (05:15)
[2021-10-27 06:53] LABS: HEMATOCRIT. 41.6 % (42.0-52.0); HEMOGLOBIN. 13.6 g/dL (14.0-18.0); MEAN CORPUSCULAR HEMOGLOBIN 32.2 pg (28.0-32.0); MEAN CORPUSCULAR VOLUME 98.7 fL (80.0-94.0); MEAN PLATELET VOLUME 9.1 fl (7.4-10.4); PLATELET 185 x1000/uL (130-400); RED BLOOD CELL COUNT 4.21 mill/uL (4.7-6.1); RED CELL DISTRIBUTION WIDTH 14.2 % (11.6-14.6)
[2021-10-27 07:07] LABS: CHLORIDE 94 mEq/L (98-107)
[2021-10-27 08:00] VITALS: BP 120/69
[2021-10-27] MEDS: TAMSULOSIN HCL 0.4MG SR CAPSULE PO SCH (08:59)
[2021-10-27] MEDS: LOSARTAN POTASSIUM 25 MG TABLET PO SCH (08:59)
[2021-10-27] MEDS: FAMOTIDINE 20MG TABLET PO SCH (08:59)
[2021-10-27] MEDS: SULFAMETHOXAZOLE/TRIMETHOPRIM 800/160MG TABLET PO SCH (09:00)
[2021-10-27] MEDS: FINASTERIDE 5MG TABLET PO SCH (09:00)
[2021-10-27] MEDS: GUAIFENESIN 600MG ER TABLET PO SCH (09:00)
[2021-10-27 09:57] VITALS: BP 120/69
[2021-10-27] MEDS: LORAZEPAM 1MG TABLET PO PRN (10:25)
[2021-10-27 12:00] VITALS: BP 120/76
[2021-10-27 17:06] LABS: PLATELET ESTIMATE NORMAL
== END 2021-10-27 14:30 | disposition hospice, home (50) | DRG 892 ==
LOC: ER 05:57 → 6WST 06:52 → ENRESERV 19:38
PROVIDERS: ADMIT Internal Medicine; ATTEND Internal Medicine
PROC: 5A09357 Assistance with Respiratory Ventilation, Less than 24 Consecutive Hours, Continuous Positive Airway Pressure (ICD-10-PCS; principal; 2021-10-26)
DX: J96.21 Acute and chronic respiratory failure with hypoxia (principal); B20 Human immunodeficiency virus [HIV] disease; E44.0 Moderate protein-calorie malnutrition; E87.2 Acidosis; J43.9 Emphysema, unspecified; J96.22 Acute and chronic respiratory failure with hypercapnia; Z20.822 Contact with and (suspected) exposure to COVID-19; I47.1 Supraventricular tachycardia; R74.01 Elevation of levels of liver transaminase levels; I10 Essential (primary) hypertension; N40.0 Benign prostatic hyperplasia without lower urinary tract symptoms; D64.9 Anemia, unspecified; Z82.49 Family history of ischemic heart disease and other diseases of the circulatory system; Z51.5 Encounter for palliative care; Z87.891 Personal history of nicotine dependence; Z99.81 Dependence on supplemental oxygen; Z79.899 Other long term (current) drug therapy; Z68.1 Body mass index [BMI] 19.9 or less, adult
CPT/HCPCS: 36415; 36600; 71045; 71275; 80048; 80053; 82375; 82550; 82553; 82805; 83605; 83735; 83880; 84145; 84484; 85025; 86140; 87426; 87804; 93005; 93306; 93970; 94640; 94644; 94660; 99285; C9113; C9803; J0360; J1650; J2270; J2920; J2930; J7030; Q9967

== ENCOUNTER 2021-11-16 17:09 | Inpatient (IN) | payer OTHER ==
[~2021-11-16] VITALS: Ht 185.4 cm; Wt 62.6 kg
[~2021-11-16 17:09] MED LIST changes: +CARLA24 MT
[2021-11-16] MEDS ORDERED: ALBUTEROL (0.083%) 2.5MG/3ML NEB HHN STA (17:15)
[2021-11-16] MEDS ORDERED: ASPIRIN 81MG TABLET PO ONE (17:15)
[2021-11-16] MEDS ORDERED: IPRATROPIUM BROMIDE (0.02%) 0.5MG/2.5ML NEB HHN STA (17:15)
[2021-11-16] MEDS ORDERED: METHYLPREDNISOLONE SOD SUCC 125 MG/2 ML VIAL IV STA (17:15)
[2021-11-16 17:42] LABS: BG BASE EXCESS -0.9 mmol/L (-2.0-2.0); BG DEOXYHEMOGLOBIN 0.9 % (0.0-5.0); BG HCO3 ACT 25.9 mmol/L (22.0-26.0); BG METHEMOGLOBIN 0.3 % (0.0-1.5); BG OXYGEN SATURATION 99.1 % (92.0-98.5); BG OXYHEMOGLOBIN 98.8 % (94.0-97.0); BG PCO2 52.4 mmHg (35.0-45.0); BG PH 7.312 (7.350-7.450); BG PO2 184.1 mmHg (75.0-100.0); BG SAMPLE SITE RIGHT RADIAL; BG TOTAL HEMOGLOBIN 11.9 g/dL (12.0-18.0); BG VENT MODE MASK - BIPAP
[2021-11-16 18:02] LABS: BASOPHILS % 0.3 % (0.0-2.0); EOSINOPHILS % 1.8 % (0.0-5.0); HEMATOCRIT. 35.4 % (42.0-52.0); HEMOGLOBIN. 11.3 g/dL (14.0-18.0); MEAN CORPUSCULAR HEMOGLOBIN 31.6 pg (28.0-32.0); MEAN PLATELET VOLUME 8.3 fl (7.4-10.4); MONOCYTES % 14.2 % (2.0-8.0); NEUTROPHILS % 64.7 % (40.0-76.0); PLATELET 254 x1000/uL (130-400); RED BLOOD CELL COUNT 3.57 mill/uL (4.7-6.1); RED CELL DISTRIBUTION WIDTH 15.3 % (11.6-14.6)
[2021-11-16 18:16] LABS: PARTIAL THROMBOPLASTIN TIME 24.4 sec (23.4-31.0); PROTHROMBIN TIME 10.8 sec (9.6-11.0)
[2021-11-16 18:51] LABS: CHLORIDE 102 mEq/L (98-107)
[2021-11-17] VITALS (13 sets, daily range): BP systolic 104–125; BP diastolic 56–78
[2021-11-17] MEDS ORDERED: PNEUMOCOCCAL 23-VAL P-SAC VAC 0.5 ML IM ONE (05:45)
[2021-11-17] MEDS ORDERED: IPRATROPIUM/ALBUTEROL 0.5-3(2.5)MG/3ML NEB HHN PRN (07:00)
[2021-11-17] MEDS ORDERED: NON FORMULARY PATIENT HOME MED XX SCH (07:00)
[2021-11-17] MEDS ORDERED: IPRATROPIUM/ALBUTEROL 0.5-3(2.5)MG/3ML NEB HHN SCH (08:00)
[2021-11-17] MEDS: IPRATROPIUM/ALBUTEROL 0.5-3(2.5)MG/3ML NEB HHN SCH ×4 (08:47→20:47)
[2021-11-17] MEDS: ENOXAPARIN 40MG/0.4ML SYR SUBCUT SCH (09:00)
[2021-11-17] MEDS ORDERED: DILTIAZEM HCL MT SCH (09:00)
[2021-11-17] MEDS ORDERED: DILTIAZEM HCL 240 MG PO SCH (09:00)
[2021-11-17] MEDS ORDERED: BUDESONIDE 0.5MG/2ML NEB HHN ONE (09:00)
[2021-11-17] MEDS: BUDESONIDE 0.5MG/2ML NEB HHN SCH ×2 (09:05→20:47)
[2021-11-17] MEDS: METHYLPREDNISOLONE SOD SUCC 40 MG/ML VIAL IV SCH ×3 (09:21→22:18)
[2021-11-17] MEDS: DILTIAZEM HCL 120MG CAPSULE CD 24HR PO SCH (09:21)
[2021-11-17] MEDS ORDERED: NALOXONE HCL 0.4MG/ML VIAL IV PRN (16:00)
[2021-11-17] MEDS ORDERED: ACETAMINOPHEN 325MG TABLET PO NR (16:00)
[2021-11-17] MEDS: HYDROCODONE/ACETAMINOPHEN 5/325MG TABLET PO PRN ×2 (16:04→22:30)
[2021-11-17] MEDS ORDERED: ACETAMINOPHEN 325MG TABLET PO PRN (16:30)
[2021-11-17] MEDS: SULFAMETHOXAZOLE/TRIMETHOPRIM 800/160MG TABLET PO SCH (18:42)
[2021-11-18] VITALS (13 sets, daily range): BP systolic 108–143; BP diastolic 61–99
[2021-11-18] MEDS: IPRATROPIUM/ALBUTEROL 0.5-3(2.5)MG/3ML NEB HHN SCH ×6 (00:19→20:59)
[2021-11-18] MEDS: METHYLPREDNISOLONE SOD SUCC 40 MG/ML VIAL IV SCH ×3 (06:33→21:20)
[2021-11-18] MEDS: BUDESONIDE 0.5MG/2ML NEB HHN SCH ×2 (08:30→21:00)
[2021-11-18] MEDS: ENOXAPARIN 40MG/0.4ML SYR SUBCUT SCH (09:00)
[2021-11-18] MEDS: DILTIAZEM HCL 120MG CAPSULE CD 24HR PO SCH (09:09)
[2021-11-18] MEDS: SULFAMETHOXAZOLE/TRIMETHOPRIM 800/160MG TABLET PO SCH (09:09)
[2021-11-18] MEDS: HYDROCODONE/ACETAMINOPHEN 5/325MG TABLET PO PRN ×2 (09:55→21:22)
[2021-11-18] MEDS: TAMSULOSIN HCL 0.4MG SR CAPSULE PO SCH (09:55)
[2021-11-18 13:05] LABS: BG BASE EXCESS -0.7 mmol/L (-2.0-2.0); BG CARBOXYHEMOGLOBIN 0.3 % (0.5-1.5); BG DEOXYHEMOGLOBIN 5.6 % (0.0-5.0); BG FRACTION INSPIRED OXYGEN 32; BG HCO3 ACT 25.8 mmol/L (22.0-26.0); BG METHEMOGLOBIN 0.4 % (0.0-1.5); BG OXYGEN SATURATION 94.4 % (92.0-98.5); BG OXYHEMOGLOBIN 93.7 % (94.0-97.0); BG PCO2 50.2 mmHg (35.0-45.0); BG PH 7.328 (7.350-7.450); BG PO2 74.9 mmHg (75.0-100.0); BG SAMPLE SITE RIGHT RADIAL; BG TOTAL HEMOGLOBIN 11.6 g/dL (12.0-18.0); BG VENT MODE NASAL CANNULA
[2021-11-18 19:01] LABS: CLARITY URINE TURBID (CLEAR); COLOR URINE YELLOW (YELLOW); KETONES URINE NEGATIVE (NEGATIVE); LEUKOCYTE ESTERASE URINE 2+ (NEGATIVE); NITRITE URINE NEGATIVE (NEGATIVE); OCCULT BLOOD URINE 2+ (NEGATIVE); PH URINE >=9.0 (4.5-8.0); PROTEIN URINE 4+ (NEGATIVE); SPECIFIC GRAVITY URINE 1.018 (1.005-1.030)
[2021-11-18] MEDS: THEOPHYLLINE ANHYDROUS 80 MG/15 ML 120ML PO SCH (21:21)
[2021-11-19] VITALS (14 sets, daily range): BP systolic 120–169; BP diastolic 64–107
[2021-11-19] MEDS: IPRATROPIUM/ALBUTEROL 0.5-3(2.5)MG/3ML NEB HHN SCH ×6 (00:34→21:20)
[2021-11-19] MEDS: METHYLPREDNISOLONE SOD SUCC 40 MG/ML VIAL IV SCH ×3 (05:27→21:21)
[2021-11-19] MEDS: THEOPHYLLINE ANHYDROUS 80 MG/15 ML 120ML PO SCH ×3 (05:27→21:21)
[2021-11-19] MEDS: HYDROCODONE/ACETAMINOPHEN 5/325MG TABLET PO PRN ×2 (06:43→15:16)
[2021-11-19 07:07] LABS: HEMATOCRIT. 35.1 % (42.0-52.0); HEMOGLOBIN. 11.3 g/dL (14.0-18.0); MEAN CORPUSCULAR HEMOGLOBIN 32.3 pg (28.0-32.0); MEAN CORPUSCULAR VOLUME 100.8 fL (80.0-94.0); MEAN PLATELET VOLUME 8.8 fl (7.4-10.4); PLATELET 267 x1000/uL (130-400); RED BLOOD CELL COUNT 3.48 mill/uL (4.7-6.1); RED CELL DISTRIBUTION WIDTH 16.3 % (11.6-14.6)
[2021-11-19] MEDS: BUDESONIDE 0.5MG/2ML NEB HHN SCH (08:13)
[2021-11-19] MEDS: ENOXAPARIN 40MG/0.4ML SYR SUBCUT SCH (09:00)
[2021-11-19] MEDS: FINASTERIDE 5MG TABLET PO SCH (09:23)
[2021-11-19] MEDS: SULFAMETHOXAZOLE/TRIMETHOPRIM 800/160MG TABLET PO SCH (09:23)
[2021-11-19] MEDS: DILTIAZEM HCL 120MG CAPSULE CD 24HR PO SCH (09:23)
[2021-11-19] MEDS: TAMSULOSIN HCL 0.4MG SR CAPSULE PO SCH (09:24)
[2021-11-19 09:51] LABS: CHLORIDE 99 mEq/L (98-107)
[2021-11-19] MEDS ORDERED: BISACODYL 10MG SUPP PR NR (11:00)
[2021-11-19] MEDS ORDERED: LACTULOSE 20G/30ML UDC PO PRN (13:15)
[2021-11-20] VITALS (17 sets, daily range): BP systolic 140–188; BP diastolic 76–114
[2021-11-20 00:17] LABS: PLATELET ESTIMATE NORMAL
[2021-11-20] MEDS: IPRATROPIUM/ALBUTEROL 0.5-3(2.5)MG/3ML NEB HHN SCH ×7 (01:10→23:44)
[2021-11-20] MEDS: METHYLPREDNISOLONE SOD SUCC 40 MG/ML VIAL IV SCH ×3 (06:54→21:21)
[2021-11-20] MEDS: THEOPHYLLINE ANHYDROUS 80 MG/15 ML 120ML PO SCH ×3 (06:55→21:21)
[2021-11-20] MEDS: DILTIAZEM HCL 120MG CAPSULE CD 24HR PO SCH (08:00)
[2021-11-20] MEDS: FINASTERIDE 5MG TABLET PO SCH (08:00)
[2021-11-20] MEDS: ENOXAPARIN 40MG/0.4ML SYR SUBCUT SCH (08:01)
[2021-11-20] MEDS: TAMSULOSIN HCL 0.4MG SR CAPSULE PO SCH (08:01)
[2021-11-20] MEDS: SULFAMETHOXAZOLE/TRIMETHOPRIM 800/160MG TABLET PO SCH (08:01)
[2021-11-20 08:57] LABS: HEMATOCRIT. 32.8 % (42.0-52.0); HEMOGLOBIN. 10.8 g/dL (14.0-18.0); MEAN CORPUSCULAR HEMOGLOBIN 31.9 pg (28.0-32.0); MEAN CORPUSCULAR VOLUME 96.6 fL (80.0-94.0); MEAN PLATELET VOLUME 7.3 fl (7.4-10.4); PLATELET 354 x1000/uL (130-400); RED CELL DISTRIBUTION WIDTH 15.8 % (11.6-14.6)
[2021-11-20 08:58] LABS: CHLORIDE 96 mEq/L (98-107)
[2021-11-20] MEDS: BUDESONIDE 0.5MG/2ML NEB HHN SCH (09:08)
[2021-11-20] MEDS: CEFTRIAXONE 1,000 MG in DEXTROSE 5% WATER 50 ML IV SCH (13:40)
[2021-11-20] MEDS: HYDROCODONE/ACETAMINOPHEN 5/325MG TABLET PO PRN (18:25)
[2021-11-20 22:39] LABS: PLATELET ESTIMATE NORMAL
[2021-11-21] VITALS (15 sets, daily range): BP systolic 62–168; BP diastolic 30–106
[2021-11-21] MEDS: IPRATROPIUM/ALBUTEROL 0.5-3(2.5)MG/3ML NEB HHN SCH ×5 (03:50→20:23)
[2021-11-21] MEDS: METHYLPREDNISOLONE SOD SUCC 40 MG/ML VIAL IV SCH ×3 (07:08→22:03)
[2021-11-21] MEDS: THEOPHYLLINE ANHYDROUS 80 MG/15 ML 120ML PO SCH ×3 (07:09→22:03)
[2021-11-21] MEDS: ENOXAPARIN 40MG/0.4ML SYR SUBCUT SCH (09:00)
[2021-11-21] MEDS: CEFTRIAXONE 1,000 MG in DEXTROSE 5% WATER 50 ML IV SCH (09:18)
[2021-11-21] MEDS: DILTIAZEM HCL 120MG CAPSULE CD 24HR PO SCH (09:18)
[2021-11-21] MEDS: SULFAMETHOXAZOLE/TRIMETHOPRIM 800/160MG TABLET PO SCH (09:19)
[2021-11-21] MEDS: FINASTERIDE 5MG TABLET PO SCH (09:19)
[2021-11-21] MEDS: TAMSULOSIN HCL 0.4MG SR CAPSULE PO SCH (09:19)
[2021-11-21] MEDS: GUAIFENESIN 600MG ER TABLET PO SCH ×2 (11:30→22:03)
[2021-11-22] VITALS (14 sets, daily range): BP systolic 122–146; BP diastolic 75–95
[2021-11-22] MEDS: IPRATROPIUM/ALBUTEROL 0.5-3(2.5)MG/3ML NEB HHN SCH ×6 (00:15→21:00)
[2021-11-22] MEDS: THEOPHYLLINE ANHYDROUS 80 MG/15 ML 120ML PO SCH ×3 (07:12→22:40)
[2021-11-22] MEDS: METHYLPREDNISOLONE SOD SUCC 40 MG/ML VIAL IV SCH ×3 (07:12→22:40)
[2021-11-22] MEDS: ENOXAPARIN 40MG/0.4ML SYR SUBCUT SCH (09:00)
[2021-11-22] MEDS: FINASTERIDE 5MG TABLET PO SCH (09:25)
[2021-11-22] MEDS: TAMSULOSIN HCL 0.4MG SR CAPSULE PO SCH (09:25)
[2021-11-22] MEDS: GUAIFENESIN 600MG ER TABLET PO SCH ×2 (09:25→22:40)
[2021-11-22] MEDS: SULFAMETHOXAZOLE/TRIMETHOPRIM 800/160MG TABLET PO SCH (09:25)
[2021-11-22] MEDS: CEFTRIAXONE 1,000 MG in DEXTROSE 5% WATER 50 ML IV SCH (09:26)
[2021-11-22] MEDS: DILTIAZEM HCL 120MG CAPSULE CD 24HR PO SCH (09:27)
[2021-11-22] MEDS: ACETYLCYSTEINE 100MG/ML 10% VIAL 4ML INH SCH (16:29)
[2021-11-23] VITALS (14 sets, daily range): BP systolic 104–182; BP diastolic 60–157
[2021-11-23] MEDS: ACETYLCYSTEINE 100MG/ML 10% VIAL 4ML INH SCH ×3 (00:10→16:25)
[2021-11-23] MEDS: IPRATROPIUM/ALBUTEROL 0.5-3(2.5)MG/3ML NEB HHN SCH ×6 (00:30→20:20)
[2021-11-23] MEDS: METHYLPREDNISOLONE SOD SUCC 40 MG/ML VIAL IV SCH ×2 (07:23→14:30)
[2021-11-23] MEDS: THEOPHYLLINE ANHYDROUS 80 MG/15 ML 120ML PO SCH ×3 (07:23→22:20)
[2021-11-23] MEDS: ENOXAPARIN 40MG/0.4ML SYR SUBCUT SCH (09:00)
[2021-11-23] MEDS: TAMSULOSIN HCL 0.4MG SR CAPSULE PO SCH (09:38)
[2021-11-23] MEDS: GUAIFENESIN 600MG ER TABLET PO SCH ×2 (09:38→22:20)
[2021-11-23] MEDS: FINASTERIDE 5MG TABLET PO SCH (09:38)
[2021-11-23] MEDS: SULFAMETHOXAZOLE/TRIMETHOPRIM 800/160MG TABLET PO SCH (09:38)
[2021-11-23] MEDS: DILTIAZEM HCL 120MG CAPSULE CD 24HR PO SCH (09:39)
[2021-11-23] MEDS: CEFTRIAXONE 1,000 MG in DEXTROSE 5% WATER 50 ML IV SCH (09:39)
[2021-11-24] VITALS (9 sets, daily range): BP systolic 136–172; BP diastolic 81–106
[2021-11-24] MEDS: ACETYLCYSTEINE 100MG/ML 10% VIAL 4ML INH SCH ×3 (00:06→16:37)
[2021-11-24] MEDS: IPRATROPIUM/ALBUTEROL 0.5-3(2.5)MG/3ML NEB HHN SCH ×7 (00:08→23:34)
[2021-11-24] MEDS: THEOPHYLLINE ANHYDROUS 80 MG/15 ML 120ML PO SCH ×3 (06:42→21:41)
[2021-11-24] MEDS ORDERED: METHYLPREDNISOLONE SOD SUCC 40 MG/ML VIAL IV SCH (09:00)
[2021-11-24] MEDS: ENOXAPARIN 40MG/0.4ML SYR SUBCUT SCH (09:00)
[2021-11-24] MEDS: CEFTRIAXONE 1,000 MG in DEXTROSE 5% WATER 50 ML IV SCH (09:00)
[2021-11-24] MEDS: GUAIFENESIN 600MG ER TABLET PO SCH ×2 (10:11→21:40)
[2021-11-24] MEDS: DILTIAZEM HCL 120MG CAPSULE CD 24HR PO SCH (10:11)
[2021-11-24] MEDS: FINASTERIDE 5MG TABLET PO SCH (10:11)
[2021-11-24] MEDS: TAMSULOSIN HCL 0.4MG SR CAPSULE PO SCH (10:11)
[2021-11-24] MEDS: SULFAMETHOXAZOLE/TRIMETHOPRIM 800/160MG TABLET PO SCH (10:12)
[2021-11-24] MEDS: HYDROCODONE/ACETAMINOPHEN 5/325MG TABLET PO PRN (14:14)
[2021-11-24] MEDS ORDERED: NALOXONE HCL 0.4MG/ML VIAL IV PRN (14:15)
[2021-11-25] VITALS (7 sets, daily range): BP systolic 133–159; BP diastolic 79–89
[2021-11-25] MEDS: IPRATROPIUM/ALBUTEROL 0.5-3(2.5)MG/3ML NEB HHN SCH ×4 (08:01→21:09)
[2021-11-25] MEDS: TAMSULOSIN HCL 0.4MG SR CAPSULE PO SCH (09:00)
[2021-11-25] MEDS ORDERED: METHYLPREDNISOLONE SOD SUCC 40 MG/ML VIAL IV SCH (09:00)
[2021-11-25] MEDS: ENOXAPARIN 40MG/0.4ML SYR SUBCUT SCH (09:00)
[2021-11-25] MEDS: GUAIFENESIN 600MG ER TABLET PO SCH ×2 (09:00→21:59)
[2021-11-25] MEDS: FINASTERIDE 5MG TABLET PO SCH (09:00)
[2021-11-25] MEDS: CEFTRIAXONE 1,000 MG in DEXTROSE 5% WATER 50 ML IV SCH (09:00)
[2021-11-25] MEDS: SULFAMETHOXAZOLE/TRIMETHOPRIM 800/160MG TABLET PO SCH (09:00)
[2021-11-25] MEDS: DILTIAZEM HCL 120MG CAPSULE CD 24HR PO SCH (09:00)
[2021-11-25] MEDS ORDERED: LIDOCAINE HCL/PF 1% 2ML VIAL ONE (11:23)
[2021-11-25] MEDS: HYDROCODONE/ACETAMINOPHEN 5/325MG TABLET PO PRN (11:56)
[2021-11-25 12:39] LABS: BG BASE EXCESS 11.6 mmol/L (-2.0-2.0); BG CARBOXYHEMOGLOBIN 0.2 % (0.5-1.5); BG DEOXYHEMOGLOBIN 3.9 % (0.0-5.0); BG HCO3 ACT 39.2 mmol/L (22.0-26.0); BG METHEMOGLOBIN 0.3 % (0.0-1.5); BG OXYGEN SATURATION 96.1 % (92.0-98.5); BG OXYHEMOGLOBIN 95.6 % (94.0-97.0); BG PCO2 68.7 mmHg (35.0-45.0); BG PH 7.374 (7.350-7.450); BG PO2 84.7 mmHg (75.0-100.0); BG SAMPLE SITE RIGHT RADIAL; BG TOTAL HEMOGLOBIN 11.3 g/dL (12.0-18.0); BG VENT MODE NASAL CANNULA
[2021-11-25] MEDS: THEOPHYLLINE ANHYDROUS 80 MG/15 ML 120ML PO SCH ×2 (15:06→21:59)
[2021-11-26] VITALS (17 sets, daily range): BP systolic 123–155; BP diastolic 69–115
[2021-11-26] MEDS: IPRATROPIUM/ALBUTEROL 0.5-3(2.5)MG/3ML NEB HHN SCH ×6 (00:47→21:02)
[2021-11-26] MEDS: HYDROCODONE/ACETAMINOPHEN 5/325MG TABLET PO PRN ×2 (04:40→15:58)
[2021-11-26] MEDS: THEOPHYLLINE ANHYDROUS 80 MG/15 ML 120ML PO SCH ×3 (06:23→22:14)
[2021-11-26] MEDS: PREDNISONE 20MG TABLET PO SCH (08:55)
[2021-11-26] MEDS: TAMSULOSIN HCL 0.4MG SR CAPSULE PO SCH (08:55)
[2021-11-26] MEDS: SULFAMETHOXAZOLE/TRIMETHOPRIM 800/160MG TABLET PO SCH (08:56)
[2021-11-26] MEDS: FINASTERIDE 5MG TABLET PO SCH (08:56)
[2021-11-26] MEDS: DILTIAZEM HCL 120MG CAPSULE CD 24HR PO SCH (09:00)
[2021-11-26] MEDS: ENOXAPARIN 40MG/0.4ML SYR SUBCUT SCH (09:00)
[2021-11-26] MEDS: GUAIFENESIN 600MG ER TABLET PO SCH ×2 (09:01→22:14)
[2021-11-26] MEDS ORDERED: LIDOCAINE HCL/PF 1% 2ML VIAL ONE (18:01)
[2021-11-26 18:29] LABS: BG BASE EXCESS 14.6 mmol/L (-2.0-2.0); BG CARBOXYHEMOGLOBIN 0.3 % (0.5-1.5); BG DEOXYHEMOGLOBIN 12.5 % (0.0-5.0); BG FRACTION INSPIRED OXYGEN 28; BG HCO3 ACT 42.6 mmol/L (22.0-26.0); BG METHEMOGLOBIN 0.3 % (0.0-1.5); BG OXYGEN SATURATION 87.4 % (92.0-98.5); BG OXYHEMOGLOBIN 86.9 % (94.0-97.0); BG PCO2 72.9 mmHg (35.0-45.0); BG PH 7.385 (7.350-7.450); BG PO2 52.7 mmHg (75.0-100.0); BG SAMPLE SITE RIGHT RADIAL; BG TOTAL HEMOGLOBIN 11.7 g/dL (12.0-18.0); BG VENT MODE NASAL CANNULA
[2021-11-27] VITALS (12 sets, daily range): BP systolic 122–150; BP diastolic 63–88
[2021-11-27] MEDS: IPRATROPIUM/ALBUTEROL 0.5-3(2.5)MG/3ML NEB HHN SCH ×6 (00:10→21:24)
[2021-11-27] MEDS: HYDROCODONE/ACETAMINOPHEN 5/325MG TABLET PO PRN ×4 (00:36→20:15)
[2021-11-27] MEDS: ACETYLCYSTEINE 100MG/ML 10% VIAL 4ML INH SCH ×2 (06:00→14:00)
[2021-11-27] MEDS: GUAIFENESIN 600MG ER TABLET PO SCH ×2 (07:08→20:15)
[2021-11-27] MEDS: THEOPHYLLINE ANHYDROUS 80 MG/15 ML 120ML PO SCH ×3 (07:08→22:59)
[2021-11-27] MEDS: ENOXAPARIN 40MG/0.4ML SYR SUBCUT SCH ×2 (09:00→09:32)
[2021-11-27] MEDS: PREDNISONE 20MG TABLET PO SCH (09:29)
[2021-11-27] MEDS: DILTIAZEM HCL 120MG CAPSULE CD 24HR PO SCH (09:29)
[2021-11-27] MEDS: FINASTERIDE 5MG TABLET PO SCH (09:29)
[2021-11-27] MEDS: TAMSULOSIN HCL 0.4MG SR CAPSULE PO SCH (09:30)
[2021-11-28] VITALS (11 sets, daily range): BP systolic 109–139; BP diastolic 65–86
[2021-11-28] MEDS: IPRATROPIUM/ALBUTEROL 0.5-3(2.5)MG/3ML NEB HHN SCH ×6 (00:39→20:12)
[2021-11-28] MEDS: THEOPHYLLINE ANHYDROUS 80 MG/15 ML 120ML PO SCH ×3 (05:46→22:08)
[2021-11-28 06:00] LABS: CHLORIDE 96 mEq/L (98-107)
[2021-11-28 06:04] LABS: HEMATOCRIT 30.4 % (42.0-52.0); HEMOGLOBIN 9.9 g/dL (14.0-18.0); MEAN CORPUSCULAR HEMOGLOBIN 31.8 pg (28.0-32.0); MEAN CORPUSCULAR VOLUME 97.4 fL (80.0-94.0); PLATELET 290 x1000/uL (130-400); RED BLOOD CELL COUNT 3.12 mill/uL (4.7-6.1); RED CELL DISTRIBUTION WIDTH 16.8 % (11.6-14.6)
[2021-11-28] MEDS: HYDROCODONE/ACETAMINOPHEN 5/325MG TABLET PO PRN ×3 (07:20→22:08)
[2021-11-28] MEDS: ENOXAPARIN 40MG/0.4ML SYR SUBCUT SCH (09:00)
[2021-11-28] MEDS: PREDNISONE 20MG TABLET PO SCH (09:29)
[2021-11-28] MEDS: TAMSULOSIN HCL 0.4MG SR CAPSULE PO SCH (09:29)
[2021-11-28] MEDS: FINASTERIDE 5MG TABLET PO SCH (09:29)
[2021-11-28] MEDS: GUAIFENESIN 600MG ER TABLET PO SCH ×2 (09:30→22:08)
[2021-11-28] MEDS: DILTIAZEM HCL 120MG CAPSULE CD 24HR PO SCH (09:30)
[2021-11-29] VITALS (8 sets, daily range): BP systolic 109–134; BP diastolic 68–88
[2021-11-29] MEDS: IPRATROPIUM/ALBUTEROL 0.5-3(2.5)MG/3ML NEB HHN SCH ×5 (00:56→20:08)
[2021-11-29] MEDS: HYDROCODONE/ACETAMINOPHEN 5/325MG TABLET PO PRN (04:08)
[2021-11-29] MEDS: THEOPHYLLINE ANHYDROUS 80 MG/15 ML 120ML PO SCH ×3 (05:14→21:03)
[2021-11-29 07:24] LABS: HEMATOCRIT. 30.3 % (42.0-52.0); HEMOGLOBIN. 9.8 g/dL (14.0-18.0); MEAN CORPUSCULAR HEMOGLOBIN 32.1 pg (28.0-32.0); MEAN CORPUSCULAR VOLUME 98.9 fL (80.0-94.0); MEAN PLATELET VOLUME 7.7 fl (7.4-10.4); PLATELET 264 x1000/uL (130-400); RED BLOOD CELL COUNT 3.07 mill/uL (4.7-6.1); RED CELL DISTRIBUTION WIDTH 16.3 % (11.6-14.6)
[2021-11-29] MEDS: PREDNISONE 20MG TABLET PO SCH (08:49)
[2021-11-29] MEDS: DILTIAZEM HCL 120MG CAPSULE CD 24HR PO SCH (08:50)
[2021-11-29] MEDS: FINASTERIDE 5MG TABLET PO SCH (08:50)
[2021-11-29] MEDS: GUAIFENESIN 600MG ER TABLET PO SCH ×2 (08:50→21:02)
[2021-11-29] MEDS: TAMSULOSIN HCL 0.4MG SR CAPSULE PO SCH (08:50)
[2021-11-29] MEDS: ENOXAPARIN 40MG/0.4ML SYR SUBCUT SCH (09:00)
[2021-11-29] MEDS: BUDESONIDE 0.5MG/2ML NEB HHN SCH ×2 (11:57→20:08)
[2021-11-30] VITALS (14 sets, daily range): BP systolic 92–142; BP diastolic 62–87
[2021-11-30] MEDS: IPRATROPIUM/ALBUTEROL 0.5-3(2.5)MG/3ML NEB HHN SCH ×6 (00:26→20:05)
[2021-11-30] MEDS: THEOPHYLLINE ANHYDROUS 80 MG/15 ML 120ML PO SCH ×3 (05:32→20:34)
[2021-11-30] MEDS: TAMSULOSIN HCL 0.4MG SR CAPSULE PO SCH (08:31)
[2021-11-30] MEDS: GUAIFENESIN 600MG ER TABLET PO SCH ×2 (08:31→20:34)
[2021-11-30] MEDS: DILTIAZEM HCL 120MG CAPSULE CD 24HR PO SCH (08:31)
[2021-11-30] MEDS: PREDNISONE 10MG TABLET PO SCH (08:31)
[2021-11-30] MEDS: FINASTERIDE 5MG TABLET PO SCH (08:31)
[2021-11-30] MEDS: ENOXAPARIN 40MG/0.4ML SYR SUBCUT SCH (08:32)
[2021-11-30] MEDS: BUDESONIDE 0.5MG/2ML NEB HHN SCH ×2 (11:08→20:06)
[2021-12-01] VITALS (10 sets, daily range): BP systolic 102–130; BP diastolic 58–87
[2021-12-01] MEDS: IPRATROPIUM/ALBUTEROL 0.5-3(2.5)MG/3ML NEB HHN SCH ×6 (00:32→20:35)
[2021-12-01 00:59] LABS: PLATELET ESTIMATE NORMAL
[2021-12-01] MEDS: THEOPHYLLINE ANHYDROUS 80 MG/15 ML 120ML PO SCH ×3 (06:16→20:35)
[2021-12-01] MEDS: BUDESONIDE 0.5MG/2ML NEB HHN SCH ×2 (08:45→21:40)
[2021-12-01] MEDS: ENOXAPARIN 40MG/0.4ML SYR SUBCUT SCH (09:00)
[2021-12-01] MEDS: FINASTERIDE 5MG TABLET PO SCH (09:33)
[2021-12-01] MEDS: GUAIFENESIN 600MG ER TABLET PO SCH ×2 (09:33→20:35)
[2021-12-01] MEDS: TAMSULOSIN HCL 0.4MG SR CAPSULE PO SCH (09:34)
[2021-12-01] MEDS: DILTIAZEM HCL 120MG CAPSULE CD 24HR PO SCH (09:34)
[2021-12-01] MEDS: PREDNISONE 10MG TABLET PO SCH (09:38)
[2021-12-01] MEDS ORDERED: LIDOCAINE HCL/PF 1% 2ML VIAL ONE (14:12)
[2021-12-01 16:43] LABS: BG BASE EXCESS 11.4 mmol/L (-2.0-2.0); BG DEOXYHEMOGLOBIN 3.6 % (0.0-5.0); BG FRACTION INSPIRED OXYGEN 32; BG HCO3 ACT 37.3 mmol/L (22.0-26.0); BG METHEMOGLOBIN 0.3 % (0.0-1.5); BG OXYGEN SATURATION 96.4 % (92.0-98.5); BG OXYHEMOGLOBIN 96.1 % (94.0-97.0); BG PCO2 56.7 mmHg (35.0-45.0); BG PH 7.436 (7.350-7.450); BG PO2 86.2 mmHg (75.0-100.0); BG SAMPLE SITE RIGHT RADIAL; BG TOTAL HEMOGLOBIN 10.5 g/dL (12.0-18.0); BG VENT MODE NASAL CANNULA
[2021-12-02] VITALS (14 sets, daily range): BP systolic 94–132; BP diastolic 49–98
[2021-12-02] MEDS: IPRATROPIUM/ALBUTEROL 0.5-3(2.5)MG/3ML NEB HHN SCH ×5 (00:33→20:58)
[2021-12-02] MEDS: ENOXAPARIN 40MG/0.4ML SYR SUBCUT SCH (09:25)
[2021-12-02] MEDS: PREDNISONE 10MG TABLET PO SCH (09:25)
[2021-12-02] MEDS: FINASTERIDE 5MG TABLET PO SCH (09:25)
[2021-12-02] MEDS: GUAIFENESIN 600MG ER TABLET PO SCH ×2 (09:25→21:45)
[2021-12-02] MEDS: TAMSULOSIN HCL 0.4MG SR CAPSULE PO SCH (09:26)
[2021-12-02] MEDS: DILTIAZEM HCL 120MG CAPSULE CD 24HR PO SCH (09:27)
[2021-12-02] MEDS: THEOPHYLLINE ANHYDROUS 80 MG/15 ML 120ML PO SCH (21:45)
[2021-12-03] VITALS (7 sets, daily range): BP systolic 112–132; BP diastolic 66–83
[2021-12-03] MEDS: IPRATROPIUM/ALBUTEROL 0.5-3(2.5)MG/3ML NEB HHN SCH ×4 (00:15→14:11)
[2021-12-03] MEDS: THEOPHYLLINE ANHYDROUS 80 MG/15 ML 120ML PO SCH (07:02)
[2021-12-03] MEDS: TAMSULOSIN HCL 0.4MG SR CAPSULE PO SCH (08:13)
[2021-12-03] MEDS: FINASTERIDE 5MG TABLET PO SCH (08:13)
[2021-12-03] MEDS: PREDNISONE 10MG TABLET PO SCH (08:13)
[2021-12-03] MEDS: GUAIFENESIN 600MG ER TABLET PO SCH (08:13)
[2021-12-03] MEDS: DILTIAZEM HCL 120MG CAPSULE CD 24HR PO SCH (08:14)
[2021-12-03] MEDS: ENOXAPARIN 40MG/0.4ML SYR SUBCUT SCH (08:14)
== END 2021-12-03 18:12 | DRG 140 ==
LOC: ER 17:09 → MICUSO 21:22 → EDBEDREQTM 21:23 → EDBEDREQ 21:23 → 5EST 23:50 → 6EST 12-03 11:01
PROVIDERS: ADMIT Internal Medicine; ATTEND Internal Medicine
PROC: 5A09357 Assistance with Respiratory Ventilation, Less than 24 Consecutive Hours, Continuous Positive Airway Pressure (ICD-10-PCS; principal; 2021-11-16)
PROC: 5A09357 Assistance with Respiratory Ventilation, Less than 24 Consecutive Hours, Continuous Positive Airway Pressure (ICD-10-PCS; 2021-11-18)
PROC: 5A09357 Assistance with Respiratory Ventilation, Less than 24 Consecutive Hours, Continuous Positive Airway Pressure (ICD-10-PCS; 2021-11-21)
PROC: 5A09357 Assistance with Respiratory Ventilation, Less than 24 Consecutive Hours, Continuous Positive Airway Pressure (ICD-10-PCS; 2021-11-22)
PROC: 5A09357 Assistance with Respiratory Ventilation, Less than 24 Consecutive Hours, Continuous Positive Airway Pressure (ICD-10-PCS; 2021-11-23)
PROC: 5A09357 Assistance with Respiratory Ventilation, Less than 24 Consecutive Hours, Continuous Positive Airway Pressure (ICD-10-PCS; 2021-11-27)
DX: J44.1 Chronic obstructive pulmonary disease with (acute) exacerbation (principal); J96.22 Acute and chronic respiratory failure with hypercapnia; E44.1 Mild protein-calorie malnutrition; B20 Human immunodeficiency virus [HIV] disease; I10 Essential (primary) hypertension; D64.9 Anemia, unspecified; E78.00 Pure hypercholesterolemia, unspecified; E87.2 Acidosis; N39.0 Urinary tract infection, site not specified; N40.1 Benign prostatic hyperplasia with lower urinary tract symptoms; N13.9 Obstructive and reflux uropathy, unspecified; R33.8 Other retention of urine; Z79.52 Long term (current) use of systemic steroids; Z82.49 Family history of ischemic heart disease and other diseases of the circulatory system; Z68.1 Body mass index [BMI] 19.9 or less, adult; Z20.822 Contact with and (suspected) exposure to COVID-19
CPT/HCPCS: 36415; 36600; 71045; 76770; 80048; 80053; 81003; 82375; 82805; 83880; 84484; 85025; 85027; 87426; 90732; 93005; 93970; 94640; 94644; 94660; 97110; 97116; 97162; 97166; 97530; 97535; 99291; A6261; J0696; J1650; J2920; J2930; J3490; J7060; J7512; J7608; J7626; A4315